=== PATIENT | female | born 1950 | race Caucasian/White ===

== ENCOUNTER 2019-06-24 22:34 | Inpatient (IN) ==
--- NOTE | 2019-06-24 23:07 | Emergency Department Note ---
Weakness HPI - General Chief complaint: Weakness Stated complaint: weakness Time Seen by Provider: 06/24/19 22:42 Source: family, EMS Mode of arrival: EMS Limitations: no limitations - History of Present Illness HPI Narrative: 68-year-old female comes in with a 2-day history of somnolence where her is having trouble awakening her. These episodes are intermittent and CPAP seems to help. She has known severe sleep apnea and has not been wearing her mask. She has been complaining of belly pain as well for the last couple months but this is getting increased severity. Seems to be periumbilical. She is able to urinate. 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 Most of this history is per her as she keeps falling asleep - Related Data Home Medications Medication Instructions Recorded Confirmed Aspirin [Hetal Chewable Aspirin] 81 mg PO DAILY 10/28/15 08/26/18 Atorvastatin [Lipitor] 20 mg PO HS 10/28/15 08/26/18 Carvedilol [Coreg] 12.5 mg PO BIDCC 10/28/15 08/26/18 Fenofibrate Nanocrystallized 145 mg PO DAILY 10/28/15 08/26/18 [Tricor] Furosemide [Lasix] 20 mg PO DAILY 10/28/15 08/26/18 Rizatriptan Benzoate [Maxalt] 10 mg PO DAILY 10/28/15 08/26/18 amLODIPine [Norvasc] 5 mg PO DAILY 10/28/15 08/26/18 Gabapentin [Neurontin] 800 mg PO TID 10/29/15 08/26/18 Methocarbamol [Robaxin] 750 mg PO Q6HP PRN 10/29/15 08/26/18 Niacin (Inositol Niacinate) 500 mg PO HS 10/29/15 08/26/18 [Niacin 500 mg Capsule] Sennosides/Docusate Sodium 2 tab PO DAILY 10/29/15 08/26/18 [Senna-Docusate Sodium Tablet] Docusate Sodium [Colace] 200 mg PO PRN PRN 03/12/17 08/26/18 Ergocalciferol (Vitamin D2) 50,000 unit PO 2-3XW 03/12/17 08/26/18 [Vitamin D2] Losartan Potassium [Cozaar] 100 mg PO DAILY 03/12/17 08/26/18 Triamcinolone Acetonide [Nasacort] 55 mcg INTRANASAL DAILY 03/12/17 08/26/18 Venlafaxine HCl [Venlafaxine HCl 75 mg PO DAILY 03/12/17 03/23/18 ER] Albuterol Sulfate [Ventolin] 2 puff INH Q4-6HP PRN 03/23/18 08/26/18 fentanyl 50 mcg/hr transdermal 1 patch TRANSDERMA Q48H each 07/29/18 08/26/18 patch hydromorphone 4 mg tablet 4 mg PO Q4H PRN 07/29/18 08/26/18 multivitamin tablet 1 tab PO QDAY 07/29/18 08/26/18 fexofenadine 60 mg tablet 60 mg PO BID 08/26/18 08/26/18 hydrochlorothiazide 12.5 mg tablet 12.5 mg PO QDAY 08/26/18 08/26/18 lamotrigine ER 50 mg 50 mg PO QDAY 08/26/18 08/26/18 tablet,extended release 24 hr lorazepam 1 mg tablet 1 mg PO TID PRN tab 08/26/18 08/26/18 prochlorperazine maleate 10 mg 10 mg PO TID PRN tab 08/26/18 08/26/18 tablet sertraline 100 mg tablet 100 mg PO DAILY tab 08/26/18 08/26/18 Allergies Allergy/AdvReac Type Severity Reaction Status Date / Time methadone [Methadone] AdvReac Intermediate Vomiting Verified 08/26/18 14:52 promethazine [From Phenergan] AdvReac Intermediate Vomiting Verified 08/26/18 14:52 ziconotide [From Prialt] AdvReac Unknown Other Verified 08/26/18 14:52 Review of Systems All systems ED: reviewed and negative except as stated. Past Medical History - Past Medical History Attestation: Yes: The following information was validated with the patient. 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) Spinal stenosis (Chronic) Mixed hyperlipidemia (Chronic) Chronic kidney disease, stage III (moderate) (Chronic) Colonic polyp (Chronic) Sleep apnea (Chronic) Spasm of muscle (Chronic) Chronic lumbar radiculopathy (Chronic) Memory difficulty (Chronic) Depressive episode (Chronic) Constipation (Chronic) Difficulty in walking (Chronic) Weakness (Chronic) Numbness (Chronic) CKD (chronic kidney disease) (Chronic) Adenomatous colon polyp (Chronic) CHF (congestive heart failure) (Chronic) Fatty liver (Chronic) Opioid dependence (Chronic) Mitral valve prolapse (Chronic) Hyperlipidemia (Chronic) Depression (Chronic) GLENNA (obstructive sleep apnea) (Chronic) Migraine (Chronic) Anxiety (Chronic) Asthma (Chronic) Leg pain (Chronic) Back pain (Chronic) COPD exacerbation (Acute) Community acquired pneumonia (Acute) Diabetes (Acute) Chronic pain (Acute) Hypertension (Acute) Respiratory infection (Acute) Acute respiratory failure (Acute) Past Surgical History (Last Reviewed 08/26/18 @ 15:23 by Caio Lopes MD) History of appendectomy (Chronic) History of back surgery (Chronic) History of exploratory laparotomy (Chronic) History of surgery (Chronic) S/P ALISIA-BSO (Chronic) S/P insertion of spinal cord stimulator (Chronic) - Social History smoking status: Current every day smoker Physical Exam Overweight female no acute distress resting. She does make myoclonic movements from time to time and she goes in and out of sleep. She is easily arousable for us here but she does appear to be globally weak. Normocephalic atraumatic. Conjunctive are clear sclerae white nonicteric. No nasal discharge or congestion. Oropharynx is pink and moist. Posterior pharynx is clear. Neck is supple without lymphadenopathy thyromegaly or carotid bruit. Heart is regular rate and rhythm no murmur appreciated. Lungs are clear to auscultation but she does have an end expiratory wheeze. No respiratory distress however. I do not hear rales. Abdomen is soft diffusely tender periumbilical and a little bit epigastric as well. No peritoneal signs or guarding. No pedal edema. +2 radial pulse. Limitations: no limitations Course Vital Signs Temperature 98.2 F 06/24/19 22:36 Pulse Rate 73 06/24/19 22:36 Respiratory Rate 18 06/24/19 22:36 Blood Pressure 153/73 06/24/19 22:36 Pulse Oximetry (%) 94 06/24/19 22:36 Temperature 98.2 F 06/24/19 22:36 Pulse Rate 71 06/25/19 01:02 Respiratory Rate 18 06/25/19 00:01 Blood Pressure 175/77 06/25/19 01:02 Pulse Oximetry (%) 91 06/25/19 01:02 Weakness - Lab Data Lab results reviewed: Yes I reviewed the patient's lab results. Result diagrams: 06/24/19 23:10 06/24/19 23:10 Lab Results 06/24/19 06/24/19 06/24/19 Range/Units 23:10 23:10 23:10 WBC 4.8 (4.5-11.0) K/mcL RBC 3.31 L (4.00-5.20) M/mcL Hgb 10.1 L (12.0-15.0) g/dL Hct 30.3 L (36.0-48.0) % POC Hct 29.0 L (36.0-48.0) % MCV 91.3 (80.0-100.0) fL MCH 30.5 (26.0-34.0) pg MCHC 33.4 (31.0-36.0) g/dL RDW 14.9 H (11.5-14.5) % Plt Count 127 L (140-440) K/mcL MPV 8.2 (7.4-10.4) fL Gran % 64.3 (38.0-78.0) % Lymph % (Auto) 26.1 (15.5-49.0) % [place] % (Auto) 8.3 (1.0-12.0) % Eos % (Auto) 1.1 (0.0-7.0) % Baso % (Auto) 0.2 (0.0-2.0) % Gran # 3.1 (1.8-8.0) K/mcL Lymph # (Auto) 1.2 L (1.5-4.8) K/mcL [place] # (Auto) 0.4 (0.1-0.9) K/mcL Eos # (Auto) 0.1 (0.0-0.7) K/mcL Baso # (Auto) 0 (0.0-0.3) K/mcL PT (11.9-14.5) sec INR (0.9-1.1) ABG Methemoglobin (0.4-1.5) % VBG pH (7.32-7.42) U VBG pCO2 (41.0-51.0) mmHg VBG pO2 (25-40) mmHg VBG HCO3 (24.0-28.0) mmol/L VBG Total CO2 (25.0-29.0) mmol/L VBG O2 Saturation (40.0-70.0) % VBG Base Excess (-2.0-2.0) VBG Lactic Acid 0.7 (0.5-2.0) mmol/L Carboxyhemoglobin (0.0-1.5) % THgb Total Hemoglobin (12.0-15.0) gm/dL O2 Delivery Level POC Sodium 145 (133-145) mmol/L Sodium 145 (133-145) mmol/L POC Potassium 3.6 (3.3-5.1) mmol/L Potassium 3.5 (3.3-5.1) mmol/L POC Chloride 102 (96-108) mmol/L Chloride 104 (96-108) mmol/L Carbon Dioxide 32 H (22-30) mmol/L POC Total CO2 31 H (22-30) mmol/L Anion Gap 9.0 (8-16) POC BUN 20 (8-23) mg/dl BUN 19 (8-23) mg/dl Creatinine 1.8 H (0.6-1.1) mg/dl POC Creatinine 1.9 H (0.6-1.1) mg/dl GFR Calculation 29 Glucose 78 (70-105) mg/dL POC Glucose 79 (70-105) mg/dL Calcium 8.7 (8.6-10.4) mg/dl POC WB Ioniz Calcium 1.13 L (1.16-1.32) mmol/L Magnesium 1.7 (1.6-2.5) mg/dL Total Bilirubin 0.4 (0.0-1.0) mg/dL AST 51 H (0-37) U/l ALT 17 (0-40) U/l Alkaline Phosphatase 82 (39-117) U/L Ammonia (11-51) umol/L Troponin T (0-0.03) ng/ml Total Protein 6.0 (5.9-8.4) gm/dL Albumin 3.2 (3.2-5.2) gm/dL Globulin 2.8 (2.2-3.7) gm/dL Albumin/Globulin Ratio 1.1 (1.0-2.3) Lipase 106 H (7-60) U/L 06/24/19 06/24/19 06/24/19 Range/Units 23:10 23:10 23:50 WBC (4.5-11.0) K/mcL RBC (4.00-5.20) M/mcL Hgb (12.0-15.0) g/dL Hct (36.0-48.0) % POC Hct (36.0-48.0) % MCV (80.0-100.0) fL MCH (26.0-34.0) pg MCHC (31.0-36.0) g/dL RDW (11.5-14.5) % Plt Count (140-440) K/mcL MPV (7.4-10.4) fL Gran % (38.0-78.0) % Lymph % (Auto) (15.5-49.0) % [place] % (Auto) (1.0-12.0) % Eos % (Auto) (0.0-7.0) % Baso % (Auto) (0.0-2.0) % Gran # (1.8-8.0) K/mcL Lymph # (Auto) (1.5-4.8) K/mcL [place] # (Auto) (0.1-0.9) K/mcL Eos # (Auto) (0.0-0.7) K/mcL Baso # (Auto) (0.0-0.3) K/mcL PT 13.9 (11.9-14.5) sec INR 1.1 (0.9-1.1) ABG Methemoglobin 0.3 L (0.4-1.5) % VBG pH 7.43 H (7.32-7.42) U VBG pCO2 53.8 H (41.0-51.0) mmHg VBG pO2 91 H (25-40) mmHg VBG HCO3 34.5 H (24.0-28.0) mmol/L VBG Total CO2 36.2 H (25.0-29.0) mmol/L VBG O2 Saturation 94.6 H (40.0-70.0) % VBG Base Excess 8.8 H (-2.0-2.0) VBG Lactic Acid (0.5-2.0) mmol/L Carboxyhemoglobin 2.6 H (0.0-1.5) % THgb Total Hemoglobin 10.0 L (12.0-15.0) gm/dL O2 Delivery Level Not Reportable POC Sodium (133-145) mmol/L Sodium (133-145) mmol/L POC Potassium (3.3-5.1) mmol/L Potassium (3.3-5.1) mmol/L POC Chloride (96-108) mmol/L Chloride (96-108) mmol/L Carbon Dioxide (22-30) mmol/L POC Total CO2 (22-30) mmol/L Anion Gap (8-16) POC BUN (8-23) mg/dl BUN (8-23) mg/dl Creatinine (0.6-1.1) mg/dl POC Creatinine (0.6-1.1) mg/dl GFR Calculation Glucose (70-105) mg/dL POC Glucose (70-105) mg/dL Calcium (8.6-10.4) mg/dl POC WB Ioniz Calcium (1.16-1.32) mmol/L Magnesium (1.6-2.5) mg/dL Total Bilirubin (0.0-1.0) mg/dL AST (0-37) U/l ALT (0-40) U/l Alkaline Phosphatase (39-117) U/L Ammonia (11-51) umol/L Troponin T < 0.01 (0-0.03) ng/ml Total Protein (5.9-8.4) gm/dL Albumin (3.2-5.2) gm/dL Globulin (2.2-3.7) gm/dL Albumin/Globulin Ratio (1.0-2.3) Lipase (7-60) U/L 06/25/19 Range/Units 00:55 WBC (4.5-11.0) K/mcL RBC (4.00-5.20) M/mcL Hgb (12.0-15.0) g/dL Hct (36.0-48.0) % POC Hct (36.0-48.0) % MCV (80.0-100.0) fL MCH (26.0-34.0) pg MCHC (31.0-36.0) g/dL RDW (11.5-14.5) % Plt Count (140-440) K/mcL MPV (7.4-10.4) fL Gran % (38.0-78.0) % Lymph % (Auto) (15.5-49.0) % [place] % (Auto) (1.0-12.0) % Eos % (Auto) (0.0-7.0) % Baso % (Auto) (0.0-2.0) % Gran # (1.8-8.0) K/mcL Lymph # (Auto) (1.5-4.8) K/mcL [place] # (Auto) (0.1-0.9) K/mcL Eos # (Auto) (0.0-0.7) K/mcL Baso # (Auto) (0.0-0.3) K/mcL PT (11.9-14.5) sec INR (0.9-1.1) ABG Methemoglobin (0.4-1.5) % VBG pH (7.32-7.42) U VBG pCO2 (41.0-51.0) mmHg VBG pO2 (25-40) mmHg VBG HCO3 (24.0-28.0) mmol/L VBG Total CO2 (25.0-29.0) mmol/L VBG O2 Saturation (40.0-70.0) % VBG Base Excess (-2.0-2.0) VBG Lactic Acid (0.5-2.0) mmol/L Carboxyhemoglobin (0.0-1.5) % THgb Total Hemoglobin (12.0-15.0) gm/dL O2 Delivery Level POC Sodium (133-145) mmol/L Sodium (133-145) mmol/L POC Potassium (3.3-5.1) mmol/L Potassium (3.3-5.1) mmol/L POC Chloride (96-108) mmol/L Chloride (96-108) mmol/L Carbon Dioxide (22-30) mmol/L POC Total CO2 (22-30) mmol/L Anion Gap (8-16) POC BUN (8-23) mg/dl BUN (8-23) mg/dl Creatinine (0.6-1.1) mg/dl POC Creatinine (0.6-1.1) mg/dl GFR Calculation Glucose (70-105) mg/dL POC Glucose (70-105) mg/dL Calcium (8.6-10.4) mg/dl POC WB Ioniz Calcium (1.16-1.32) mmol/L Magnesium (1.6-2.5) mg/dL Total Bilirubin (0.0-1.0) mg/dL AST (0-37) U/l ALT (0-40) U/l Alkaline Phosphatase (39-117) U/L Ammonia 41 (11-51) umol/L Troponin T (0-0.03) ng/ml Total Protein (5.9-8.4) gm/dL Albumin (3.2-5.2) gm/dL Globulin (2.2-3.7) gm/dL Albumin/Globulin Ratio (1.0-2.3) Lipase (7-60) U/L Urinalysis [id number] dipstick showed trace leukocytes trace blood specific gravity 1.010 otherwise normal - Radiology Data Radiology results reviewed: Yes I reviewed the patient's radiology results. CT of the head shows mild sphenoid sinusitis CT scan of the abdomen and pelvis without contrast shows cirrhosis of the liver with mild ascites splenomegaly but no other acute findings - EKG Data EKG attestation: Yes I reviewed and interpreted this EKG., Yes There are no EKG findings of acute coronary syndrome, Yes This EKG will be read by crop nutrition scientist EKG results narrative: Normal sinus rhythm with a rate of 72. Disposition Pt seen by SENIOR NET APPLICATION DEVELOPER/PA only: No Clinical Impression: Sphenoid sinusitis Qualifiers: Chronicity: acute Recurrence: not specified as recurrent Qualified Code(s): J01.30 - Acute sphenoidal sinusitis, unspecified Cirrhosis Qualifiers: Hepatic cirrhosis type: unspecified hepatic cirrhosis Ascites presence: with ascites Qualified Code(s): K74.60 - Unspecified cirrhosis of liver Altered mental status Qualifiers: Altered mental status type: somnolence Qualified Code(s): R40.0 - Somnolence Acute renal failure Qualifiers: Acute renal failure type: unspecified Qualified Code(s): N17.9 - Acute kidney failure, unspecified UTI (urinary tract infection) Qualifiers: Urinary tract infection type: acute cystitis Hematuria presence: with hematuria Qualified Code(s): N30.01 - Acute cystitis with hematuria Summary: Work-up ordered with CT scans, laboratory, ABG. EKG is unrevealing as is urinalysis dipstick. Suspect elevated CO2 is causing her symptomatology in terms of jerking and somnolence. Unclear what is causing her belly pain over the last couple of months. Urinalysis shows trace leukocytes and blood which could be a UTI. CT scan of the head shows sphenoidal sinusitis. Rx for IV ceftriaxone as she is somnolent and this will cover both. CT scan of the abdomen pelvis shows evidence of cirrhosis with mild ascites. Check ammonia level as this may account for her somnolence Ammonia level was normal She remains somnolent but oxygen levels were okay. Her creatinine is elevated now at 1.8 up from 1.3 or 1.4 at baseline based on previous labs. I think she needs to come in the hospital for acute renal failure with altered mental status. I discussed the case with Dr. Ojeda, hospitalist, he agreed to accept the patient for further care and evaluation in the hospital. We will continue antibiotics and IV fluids overnight Disposition: Xfer As Outpt/Obs ([facility]) Condition: Fair Referrals: Delicia Jones MD [Primary Care Provider] -
[2019-06-24] MEDS ORDERED: IPRATROPIUM/ALBUTEROL 3 ML AMPUL.NEB NEB ONE (23:09)
[2019-06-24 23:22] LABS: POC Blood Urea Nitrogen 20 mg/dl (8-23); POC CO2 31 mmol/L (22-30); POC Calcium, Ionized 1.13 mmol/L (1.16-1.32); POC Chloride 102 mmol/L (96-108); POC Creatinine 1.9 mg/dl (0.6-1.1); POC Glucose, Random 79 mg/dL (70-105); POC Potassium 3.6 mmol/L (3.3-5.1); POC Sodium 145 mmol/L (133-145)
[2019-06-24] MEDS ORDERED: 0.9 % SODIUM CHLORIDE 1,000 ML IV ONE (23:40)
[2019-06-25 00:04] LABS: Basophils # (Auto) 0 K/mcL (0.0-0.3); Basophils % (Auto) 0.2 % (0.0-2.0); Eosinophils # (Auto) 0.1 K/mcL (0.0-0.7); Eosinophils % (Auto) 1.1 % (0.0-7.0); Granulocytes % (Auto) 64.3 % (38.0-78.0); Hematocrit 30.3 % (36.0-48.0); Hemoglobin 10.1 g/dL (12.0-15.0); Lymphocytes # (Auto) 1.2 K/mcL (1.5-4.8); Lymphocytes % (Auto) 26.1 % (15.5-49.0); Mean Cell Volume 91.3 fL (80.0-100.0); Mean Corpuscular HGB Conc 33.4 g/dL (31.0-36.0); Mean Platelet Volume 8.2 fL (7.4-10.4); Monocytes # (Auto) 0.4 K/mcL (0.1-0.9); Monocytes % (Auto) 8.3 % (1.0-12.0); Platelet Count 127 K/mcL (140-440); RBC 3.31 M/mcL (4.00-5.20); Red Cell Distribution Width 14.9 % (11.5-14.5); WBC 4.8 K/mcL (4.5-11.0)
[2019-06-25 00:16] LABS: INR 1.1 (0.9-1.1); Prothrombin Time 13.9 sec (11.9-14.5)
[2019-06-25 00:31] LABS: ALT/SGPT 17 U/l (0-40); AST/SGOT 51 U/l (0-37); Albumin 3.2 gm/dL (3.2-5.2); Albumin/Globulin Ratio 1.1 (1.0-2.3); Alkaline Phosphatase 82 U/L (39-117); Bilirubin,Total 0.4 mg/dL (0.0-1.0); Blood Urea Nitrogen 19 mg/dl (8-23); Calcium 8.7 mg/dl (8.6-10.4); Carbon Dioxide 32 mmol/L (22-30); Chloride 104 mmol/L (96-108); Globulin 2.8 gm/dL (2.2-3.7); Glomerular Filtration Rate 29; Glucose 78 mg/dL (70-105)
[2019-06-25 00:35] LABS: ABG Methemoglobin 0.3 % (0.4-1.5); VBG Base Excess 8.8 (-2.0-2.0); VBG HCO3 34.5 mmol/L (24.0-28.0); VBG Oxygen Saturation 94.6 % (40.0-70.0); VBG PCO2 53.8 mmHg (41.0-51.0); VBG PH 7.43 U (7.32-7.42); VBG PO2 91 mmHg (25-40); VBG Total CO2 36.2 mmol/L (25.0-29.0)
[2019-06-25] MEDS ORDERED: cefTRIAXone 1 GM VIAL IV ONE (01:00)
[2019-06-25] MEDS ORDERED: ACETAMINOPHEN 325 MG TABLET PO PRN (02:02)
[2019-06-25] MEDS ORDERED: ONDANSETRON 4 MG/2 ML VIAL IV PRN (02:02)
[2019-06-25] MEDS ORDERED: 0.9 % SODIUM CHLORIDE 1,000 ML IV SCH (02:15)
[2019-06-25] MEDS: HYDROmorphone 2 MG TABLET PO PRN ×5 (03:22→21:12)
[2019-06-25] MEDS ORDERED: HYDROmorphone 2 MG TABLET ONE (03:23)
[2019-06-25] MEDS ORDERED: fentaNYL 50 MCG PATCH TOPICAL SCH (03:30)
--- NOTE | 2019-06-25 05:06 | Cat Scan Report ---
CLINICAL INFORMATION: Altered mental status COMPARISON: 03/28/[address] without contrast TECHNIQUE: 2.5 mm helical slices were obtained in the skull base to vertex. Following reconstruction, axial reformatted images were reviewed at bone and parenchymal windows. The exam was performed using radiation dose optimization techniques including, but not limited to, automated exposure control, adjustment of the mA and/or kV according to patient size and use of iterative reconstruction technique. FINDINGS: The ventricles, sulci, fissures, and cisterns are normal in size and configuration for age. No extra-axial fluid collections are identified. Minimal chronic ischemic changes noted in the cerebral white matter and basal ganglia similar previous study. The cerebrum, brainstem and cerebellum are otherwise, unremarkable. There is no evidence of hemorrhage, mass effect, or edema. Bone windows show no osseous abnormality. IMPRESSION: Mild atrophy and minimal chronic ischemic changes in the deep cerebral white matter - similar to previous study.. Interpreted and Authenticated by: Nacho Vaz 06/25/19
--- NOTE | 2019-06-25 05:22 | Cat Scan Report ---
CLINICAL INFORMATION: Abdominal pain and weakness. History of chronic renal disease COMPARISON: Abdominal ultrasound 10/11/2006. TECHNIQUE: 0.625 mm helical slices were obtained from the mid heart through the subtrochanteric regions. Following reconstruction, 2.5 mm sagittal, coronal and axial reformatted images were processed and reviewed at bone and soft tissue windows.The exam was performed using radiation dose optimization techniques including, but not limited to, automated exposure control, adjustment of the mA and/or kV according to patient size and use of iterative reconstruction technique. FINDINGS: Lung bases show scattered scarring or atelectasis. No effusion. The visualized heart is mildly enlarged. Images through the abdomen show moderate cirrhosis featuring slight reduction liver size, irregular cortical surface and inhomogeneous attenuation. No focal hepatic lesions appreciated on this noncontrast study. The portal vein is enlarged with a diameter of 19 mm. there are multiple varices in the paraesophageal, perisplenic, perigastric and peripancreatic region. In addition, the spleen is enlarged with a vertical dimension of 16 cm. No ascites. The gallbladder and bile ducts are normal: CBD is 5 mm. Mild pancreatic atrophy appreciated - no focal pancreatic lesions. The adrenal glands are unremarkable. There are scattered low-attenuation lesions in the right kidney: 19 mm superior pole, 24 mm lateral mid cortex 14 mm inferior pole. In the left kidney, there is a 14 mm low-attenuation lesion in the superior pole. Nearly all lesions were seen on the lumbar CT from 05/05/2017 two years prior and appear to be unchanged. One exception: The 19 mm low-attenuation lesion in the superior pole the right kidney appears to be new. Pelvic images show hysterectomy/oophorectomy changes. Urinary bladder is unremarkable. A few sigmoid diverticula noted, but no evidence of diverticulitis. The remaining large bowel is normal. Appendectomy changes acknowledged. Small bowel and stomach are grossly normal. Bone windows show L4-5 and L5-S1 anterior/posterior fusion laminectomy which are solid and anatomically aligned. No focal osseous lesion. Spinal stimulator wires and battery pack appear unremarkable. IMPRESSION: 1. Moderate cirrhosis with evidence for portal hypertension featuring enlargement of the portal vein and varices in the paraesophageal perigastric and perisplenic region. Moderate splenomegaly. No ascites. 2. Scattered low-attenuation lesions in the kidneys - predominantly on the right,. Nearly all lesions appear to be unchanged since a lumbar spine CT over two years prior. The exception is a 19 mm low-attenuation lesion superior pole the right kidney which may be new. All lesions, including the new lesion, are likely cysts. Suggest: Renal ultrasound. 3. Sigmoid diverticulosis, but no evidence of diverticulitis. 4. Mild pancreatic atrophy Interpreted and Authenticated by: Nacho Vaz 06/25/19
[2019-06-25] MEDS ORDERED: METHOCARBAMOL 750 MG TABLET PO PRN (08:19)
[2019-06-25] MEDS ORDERED: ALBUTEROL SULFATE 1 PUFF INHALER INH PRN (08:19)
[2019-06-25] MEDS ORDERED: PROCHLORPERAZINE 10 MG TABLET PO PRN (08:19)
--- NOTE | 2019-06-25 08:25 | Internal Med History&Physical ---
Medical - H&P: [facility] Patient information: Note initiated : 06/25/19 at 8:16 am Service Date, if different from initiated Date: [] Patient: Kathleen Avitia a 68 y/o F admitted on 06/25/19 for weakness. Chief Complaint: [] Chief complaint: Lethargic and somnolent History of present illness: Ms. 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 Her found her laying like a heap unable to respond. Patient cannot recollect the events prior to presentation to the ER. She has been sleeping all day unable not able to get up and perform ADL. She however did not experience fever, shaking chills, diarrhea, cough, incontinence or seizure-like episodes. With increasing concern she was brought into the ER by her . Initial work-up revealed creatinine 1.9 along with mild hypoxia on ABG. Patient started on oxygen/crystalloids. She is on multiple pain medication including fentanyl\Dilaudid/lorazepam/methocarbamol/gabapentin. Remains high probability polypharmacy related somnolence. Hospitalist service was consulted At the time of evaluation no family members are present. Patient is more alert and able to answer some of the questions. She denies chest pain, lightheadedness, dizziness but endorses a severe fatigue lethargic. Unable to recollect any events over the last 24 hours. She denies changes in medications or recent exposure to sick contacts. 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 Spasm of muscle (Chronic) History of recurrent severe spastic episodes Chronic lumbar radiculopathy (Chronic) Memory difficulty (Chronic) Depressive episode (Chronic) Constipation (Chronic) Difficulty in walking (Chronic) Weakness (Chronic) Numbness (Chronic) CKD (chronic kidney disease) (Chronic) Adenomatous colon polyp (Chronic) CHF (congestive heart failure) (Chronic) Fatty liver (Chronic) Opioid dependence (Chronic) for pain control of benign origin Mitral valve prolapse (Chronic) Hyperlipidemia (Chronic) Depression (Chronic) GLENNA (obstructive sleep apnea) (Chronic) Migraine (Chronic) Anxiety (Chronic) Asthma (Chronic) Leg pain (Chronic) Back pain (Chronic) COPD exacerbation (Acute) Community acquired pneumonia (Acute) sereneitmaria luz Abbott, failed outpatient therapy Diabetes (Acute) Chronic pain (Acute) Hypertension (Acute) Respiratory infection (Acute) Acute respiratory failure (Acute) Surgical History History of appendectomy (Chronic) History of back surgery (Chronic) 10 different encounters; multiple lumbar decompressive surgeries History of exploratory laparotomy (Chronic) History of surgery (Chronic) 2006 pain pump, nerve stimulator S/P ALISIA-BSO (Chronic) S/P insertion of spinal cord stimulator (Chronic) Family History Brother , 36 Cancer Social History marital status: other: Children-1 smoking status: Current every day smoker alcohol intake frequency: a few times a week Alcohol use: occasionally Medical - H&P: Meds Home Medications Medication Instructions Recorded Confirmed Type Aspirin [Hetal Chewable Aspirin] 81 mg PO DAILY 10/28/15 06/25/19 History Atorvastatin [Lipitor] 20 mg PO HS 10/28/15 06/25/19 History Carvedilol [Coreg] 12.5 mg PO BIDCC 10/28/15 06/25/19 History Fenofibrate Nanocrystallized 145 mg PO DAILY 10/28/15 06/25/19 History [Tricor] Furosemide [Lasix] 20 mg PO DAILY 10/28/15 06/25/19 History Rizatriptan Benzoate [Maxalt] 10 mg PO DAILY 10/28/15 06/25/19 History amLODIPine [Norvasc] 10 mg PO DAILY 10/28/15 06/25/19 History Gabapentin [Neurontin] 800 mg PO TID 10/29/15 06/25/19 History Methocarbamol [Robaxin] 750 mg PO Q6HP PRN 10/29/15 06/25/19 History Niacin (Inositol Niacinate) 500 mg PO HS 10/29/15 06/25/19 History [Niacin 500 mg Capsule] Sennosides/Docusate Sodium 3 tab PO DAILY 10/29/15 06/25/19 History [Senna-Docusate Sodium Tablet] Docusate Sodium [Colace] 200 mg PO QDAY 03/12/17 06/25/19 History Ergocalciferol (Vitamin D2) 50,000 unit PO WEEKLY 03/12/17 06/25/19 History [Vitamin D2] Triamcinolone Acetonide [Nasacort] 2 spray INTRANASAL DAILY 03/12/17 06/25/19 History Albuterol Sulfate [Ventolin] 2 puff INH Q4-6HP PRN 03/23/18 06/25/19 History fentanyl 50 mcg/hr transdermal 1 patch TRANSDERMA Q48H each 07/29/18 06/25/19 History patch hydromorphone 4 mg tablet 4 mg PO Q4H PRN 07/29/18 06/25/19 History fexofenadine 60 mg tablet 60 mg PO BID 08/26/18 06/25/19 History hydrochlorothiazide 12.5 mg tablet 12.5 mg PO QDAY 08/26/18 06/25/19 History lorazepam 1 mg tablet 2 mg PO BID PRN tab 08/26/18 06/25/19 History prochlorperazine maleate 10 mg 10 mg PO Q4HP PRN tab 08/26/18 06/25/19 History tablet sertraline 100 mg tablet 100 mg PO DAILY tab 08/26/18 06/25/19 History Cozaar 100 mg PO QDAY 06/25/19 06/25/19 History Proventil Hfa 2 puff INH Q6 06/25/19 06/25/19 History Allergies Allergy/AdvReac Type Severity Reaction Status Date / Time methadone [Methadone] AdvReac Intermediate Vomiting Verified 06/25/19 03:11 promethazine [From Phenergan] AdvReac Mild Vomiting Verified 06/25/19 05:45 ziconotide [From Prialt] AdvReac Mild Other Verified 06/25/19 05:45 Medical - H&P: Exam - Constitutional Vitals: Temp Pulse Resp BP Pulse Ox 98.6 F 74 16 182/81 93 06/25/19 07:49 06/25/19 07:49 06/25/19 07:49 06/25/19 07:49 06/25/19 07:49 General appearance: obese Exam: Lethargic and somnolent but responding to commands Head normocephalic oral cavity dry eye movement symmetrical no ear nose discharge S1-S2 regular rhythm Neck no lymphadenopathy Chest diminished breath sounds right posterior lateral chest, inspiratory crackles on late inspiration Abdomen soft nontender Lower extremity no cyanosis clubbing no joint swelling Skin no suspicious lesion Psych lethargic somnolent but cooperative Neuro nonfocal Medical - H&P: Reslt - Labs CBC & Chem 7: 06/24/19 23:10 06/24/19 23:10 Labs: Short CBC 06/24/19 Range/Units 23:10 WBC 4.8 (4.5-11.0) K/mcL Hgb 10.1 L (12.0-15.0) g/dL Hct 30.3 L (36.0-48.0) % Plt Count 127 L (140-440) K/mcL BMP 06/24/19 23:10 Sodium 145 Potassium 3.5 Chloride 104 Carbon Dioxide 32 H BUN 19 Creatinine 1.8 H Glucose 78 Calcium 8.7 Cardiac Enzymes 06/24/19 Range/Units 23:10 Troponin T < 0.01 (0-0.03) ng/ml Liver Function 06/24/19 Range/Units 23:10 Total Bilirubin 0.4 (0.0-1.0) mg/dL AST 51 H (0-37) U/l ALT 17 (0-40) U/l Alkaline Phosphatase 82 (39-117) U/L Albumin 3.2 (3.2-5.2) gm/dL - ABG Interpretation ABG results: 06/24/19 23:50 ABG Methemoglobin 0.3 L VBG pH 7.43 H VBG pCO2 53.8 H VBG pO2 91 H VBG HCO3 34.5 H VBG Total CO2 36.2 H VBG O2 Saturation 94.6 H VBG Base Excess 8.8 H Medical - H&P: A/P (1) Change in mental status Current visit: Yes Status: Acute * Acute change mental status-likely multifactorial including polypharmacy/hypercapnic hypoxic encephalopathy. Rule out infectious etiology. check procalcitonin. Chest x-ray right-sided infiltrate. * Acute kidney injury baseline creatinine 1.1 current creatinine 1.8. Gentle crystalloids. Monitor renal function * Sleep apnea with hypercarbic hypoventilatory respiratory failure, check ABG. Start BiPAP if evidence of CO2 retention repeat ABG * Abdominal pain unclear etiology. Negative CT scan. * Continue Coreg/CC B/thiazide, hold ARB in light of NAPOLEON * Anxiety disorder continue sertraline * Chronic pain on hydromorphone/fentanyl/gabapentin methocarbamol, lower fentanyl dose 25 * History of migraine on rizatriptan * Hyperlipidemia on statin * History of CAD on aspirin statin beta-aileen/ARB * Full code * prophylaxis heparin Plan * Observation admit in light of acute kidney injury/mental status change * BiPAP if evidence of hypercapnic respiratory failure * Hold Dilaudid and lower fentanyl dose * Pancultures, chest imaging/procalcitonin * Repeat ABG * Pre-existing medical condition management as above * PT OT nutrition support Medical - H&P: Qual - Stroke Symptom Onset Unknown: No - VTE Deep Vein Thrombosis/Pulmonary Embolism Present on Admission: No
--- NOTE | 2019-06-25 08:40 | XRay Report ---
CLINICAL INFORMATION: sob COMPARISON: 11/12/2015 FINDINGS: Right-sided Port-A-Cath is stable satisfactory position. The heart is mildly enlarged - slightly increased. Mediastinum is unremarkable. Mild interstitial disease seen throughout the right lung which is new. No effusions. IMPRESSION: Moderate diffuse right lung interstitial infiltrate or edema - new. Suggest two-view upright chest x-ray for better evaluation Interpreted and Authenticated by: Nacho Vaz 06/25/19
[2019-06-25] MEDS: HYDROCHLOROTHIAZIDE 12.5 MG CAPSULE PO SCH (08:50)
[2019-06-25] MEDS: ASPIRIN 81 MG TAB.CHEW PO SCH (08:50)
[2019-06-25] MEDS: DOCUSATE SODIUM 100 MG CAPSULE PO SCH (08:50)
[2019-06-25] MEDS: ERGOCALCIFEROL (VITAMIN D2) 50,000 UNIT CAPSULE PO SCH (08:50)
[2019-06-25] MEDS: SERTRALINE 100 MG TABLET PO SCH (08:51)
[2019-06-25] MEDS: SENNOSIDES/DOCUSATE SODIUM 1 TAB TABLET PO SCH (08:51)
[2019-06-25] MEDS: amLODIPine 10 MG TABLET PO SCH (08:51)
[2019-06-25] MEDS: FENOFIBRATE 43 MG CAPSULE PO SCH (08:51)
[2019-06-25] MEDS ORDERED: FUROSEMIDE 20 MG TABLET PO SCH (09:00)
[2019-06-25] MEDS ORDERED: RIZATRIPTAN BENZOATE 10 MG PO PRN (09:00)
[2019-06-25] MEDS: TRIAMCINOLONE ACETONIDE NAS SCH (09:51)
[2019-06-25] MEDS: [UNRECOGNIZED DRUG - REMARK] PO SCH ×2 (09:51→20:19)
[2019-06-25 10:10] LABS: Basophils # (Auto) 0 K/mcL (0.0-0.3); Basophils % (Auto) 0.2 % (0.0-2.0); Eosinophils # (Auto) 0.1 K/mcL (0.0-0.7); Eosinophils % (Auto) 1.8 % (0.0-7.0); Granulocytes % (Auto) 67.5 % (38.0-78.0); Hematocrit 33.4 % (36.0-48.0); Lymphocytes # (Auto) 1.2 K/mcL (1.5-4.8); Lymphocytes % (Auto) 24.2 % (15.5-49.0); Mean Cell Volume 90.8 fL (80.0-100.0); Mean Corpuscular HGB Conc 32.9 g/dL (31.0-36.0); Monocytes # (Auto) 0.3 K/mcL (0.1-0.9); Monocytes % (Auto) 6.3 % (1.0-12.0); Platelet Count 136 K/mcL (140-440); RBC 3.68 M/mcL (4.00-5.20); WBC 4.8 K/mcL (4.5-11.0)
[2019-06-25] MEDS: fentaNYL 25 MCG PATCH TOPICAL SCH (10:31)
[2019-06-25] MEDS: 0.9 % SODIUM CHLORIDE 1,000 ML IV SCH ×2 (10:32→23:17)
[2019-06-25 10:52] LABS: Appearance,Urine CLEAR; Bacteria,Urine 0 /hpf (0); Bilirubin,Urine NEG (NEG); Color,Urine STRAW; Culture Indicated,Urine NO; Glucose,Urine (UA) NEGATIVE (NEG); Ketones,Urine NEG (NEG); Leukocyte Esterase,Urine NEG /uL (NEG); Nitrate,Urine NEG (NEG); Protein,Urine 100 mg/dL (NEG); Specific Gravity,Urine 1.011 (1.000-1.035); Urine Blood NEG mg/dL (<0.03); Urine RBC < 1 /hpf (0-1); Urine Squamous Epithelial Cell < 1 /hpf (0-4); Urine WBC 1 /hpf (0-4); Urobilinogen,Urine NEG (NEG)
[2019-06-25] MEDS ORDERED: PROVENTIL INH SCH (12:00)
[2019-06-25] MEDS: CARVEDILOL 12.5 MG TABLET PO SCH ×2 (13:03→20:18)
--- NOTE | 2019-06-25 13:18 | Internal Med Progress Note ---
Medical - PN: Subj Patient information: Note initiated : 06/25/19 at 1:05 pm Service Date, if different from initiated Date: [] Patient: Kathleen Avitia a 68 y/o F admitted on 06/25/19 for weakness. Chief Complaint: [] Interval history: Ms. 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 Her found her laying like a heap unable to respond. Patient cannot recollect the events prior to presentation to the ER. She has been sleeping all day unable not able to get up and perform ADL. She however did not experience fever, shaking chills, diarrhea, cough, incontinence or seizure-like episodes. With increasing concern she was brought into the ER by her . Initial work-up revealed creatinine 1.9 along with mild hypoxia on ABG. Patient started on oxygen/crystalloids. She is on multiple pain medication including fentanyl\Dilaudid/lorazepam/methocarbamol/gabapentin. Remains high probability polypharmacy related somnolence. Hospitalist service was consulted At the time of evaluation no family members are present. Patient is more alert and able to answer some of the questions. She denies chest pain, lightheadedness, dizziness but endorses a severe fatigue lethargic. Unable to recollect any events over the last 24 hours. She denies changes in medications or recent exposure to sick contacts. 06/26 - Constitutional Vitals: Vital Signs Temp Pulse Resp BP Pulse Ox 98.6 F 74 16 180/80 93 06/25/19 07:49 06/25/19 07:49 06/25/19 07:49 06/25/19 12:08 06/25/19 07:49 Period Temp Pulse Resp BP Sys/Connolly Pulse Ox Last 24 Hr 98.1 F-98.6 F 68-76 15-22 151-182/67-81 91-100 Intake and Output 06/24/19 06/25/19 06/25/19 21:59 05:59 13:59 Intake Total 1000 Output Total 350 1000 Balance -350 0 Weight 95.98 kg Intake & Output: Intake & Output 06/24/19 06/25/19 06/25/19 21:59 05:59 13:59 Intake Total 1000 Output Total 350 1000 Balance -350 0 Weight 95.98 kg Intake: IV 1000 Output: Void Amount 350 1000 Other: Meal Breakfast Percent of Meal Consumed 0% Urine Appearance Clear Urine Color Bright Yellow Light Corrina Urine Odor Normal Stool Size Moderate Small Stool Color Brown Brown Stool Consistency Soft Soft Formed # Voids 1 # Bowel Movements 1 Exam: General: Alert, Awake, No acute Distress Eyes/N/T: EOMI, Head/Neck: neck supple, CV: RRR, No murmurs, Pulm: Abd: soft, nontender, +BS x4 Ext: no clubbing/cyanosis/ Neuro: Alert, no focal deficits, moves all extremities, Skin: warm/dry Medical - PN: Obj Da - Labs CBC & Chem 7: 06/25/19 09:05 06/24/19 23:10 Labs: Abnormal Lab Results 06/25/19 06/25/19 06/24/19 09:48 09:05 23:50 RBC 3.68 L Hgb 11.0 L Hct 33.4 L POC Hct RDW 15.0 H Plt Count 136 L Lymph # (Auto) 1.2 L ABG Methemoglobin 0.3 L VBG pH 7.43 H VBG pCO2 53.8 H VBG pO2 91 H VBG HCO3 34.5 H VBG Total CO2 36.2 H VBG O2 Saturation 94.6 H VBG Base Excess 8.8 H Carboxyhemoglobin 2.6 H Total Hemoglobin 10.0 L Carbon Dioxide POC Total CO2 Creatinine POC Creatinine POC WB Ioniz Calcium AST Lipase Urine Protein 100 A 06/24/19 06/24/19 23:10 23:10 RBC 3.31 L Hgb 10.1 L Hct 30.3 L POC Hct 29.0 L RDW 14.9 H Plt Count 127 L Lymph # (Auto) 1.2 L ABG Methemoglobin VBG pH VBG pCO2 VBG pO2 VBG HCO3 VBG Total CO2 VBG O2 Saturation VBG Base Excess Carboxyhemoglobin Total Hemoglobin Carbon Dioxide 32 H POC Total CO2 31 H Creatinine 1.8 H POC Creatinine 1.9 H POC WB Ioniz Calcium 1.13 L AST 51 H Lipase 106 H Urine Protein Meds: Medications Acetaminophen (Tylenol) 650 mg PO Q6HP PRN PRN Reason: PAIN/FEVER > 101 Albuterol Sulfate (Ventolin) 2 puff INH Q4-6HP PRN PRN Reason: Shortness Of Breath Amlodipine Besylate (Norvasc) 10 mg PO DAILY [facility] Last Admin: 06/25/19 08:51 Dose: 10 mg Documented by: Aspirin (Aspirin) 81 mg PO DAILY [facility] Last Admin: 06/25/19 08:50 Dose: 81 mg Documented by: Atorvastatin Calcium (Lipitor) 20 mg PO HS [facility] Carvedilol (Coreg) 12.5 mg PO BIDCC [facility] Last Admin: 06/25/19 13:03 Dose: 12.5 mg Documented by: Docusate Sodium (Colace) 200 mg PO QDAY [facility] Last Admin: 06/25/19 08:50 Dose: 200 mg Documented by: Ergocalciferol (Drisdol) 50,000 unit PO MoFr@0900 [facility] Last Admin: 06/25/19 08:50 Dose: 50,000 unit Documented by: Fenofibrate (Antara) 129 mg PO DAILY [facility] Last Admin: 06/25/19 08:51 Dose: 129 mg Documented by: Fentanyl (Duragesic) 25 mcg TOPICAL Q72H [facility] Last Admin: 06/25/19 10:31 Dose: 25 mcg Documented by: Furosemide (Lasix) 20 mg PO DAILY [facility] Last Admin: 06/25/19 08:51 Dose: 20 mg Documented by: Hydralazine HCl (Apresoline) 10 - 20 mg IV Q2HP PRN PRN Reason: Hypertension Hydrochlorothiazide (Oretic) 12.5 mg PO DAILY [facility] Last Admin: 06/25/19 08:50 Dose: 12.5 mg Documented by: Hydromorphone HCl (Dilaudid) 4 mg PO Q4HP PRN PRN Reason: PAIN LEVEL 3-6 Last Admin: 06/25/19 13:03 Dose: 4 mg Documented by: Sodium Chloride (Sodium Chloride 0.9%) 1,000 mls @ 75 mls/hr IV .[id number] [facility] Last Admin: 06/25/19 10:32 Dose: 75 mls/hr Documented by: Lorazepam (Ativan) 2 mg PO BIDP PRN PRN Reason: Anxiety Methocarbamol (Robaxin) 750 mg PO Q6HP PRN PRN Reason: Pain Ondansetron HCl (Zofran) 4 mg IV Q4HP PRN PRN Reason: Nausea And Vomiting Fexofenadine Hcl [ Allergy Relief] 60 Mg Tab 1 dose PO BID [facility] Last Admin: 06/25/19 09:51 Dose: Not Given Documented by: Rizatriptan Benzoate ([Maxalt] 10 Mg Tab) 1 dose PO DAILYP PRN PRN Reason: Migraine Headache Triamcinolone Acetonide [Nasacort] Nasal Hector 2 dose ADILENE DAILY [facility] Last Admin: 06/25/19 09:51 Dose: Not Given Documented by: Prochlorperazine (Compazine) 10 mg PO Q4HP PRN PRN Reason: Nausea Senna/Docusate Sodium (Senna Plus Tablet) 3 tab PO DAILY [facility] Last Admin: 06/25/19 08:51 Dose: 3 tab Documented by: Sertraline HCl (Zoloft) 100 mg PO DAILY [facility] Last Admin: 06/25/19 08:51 Dose: 100 mg Documented by: - ABG Interpretation ABG results: 06/24/19 23:50 ABG Methemoglobin 0.3 L VBG pH 7.43 H VBG pCO2 53.8 H VBG pO2 91 H VBG HCO3 34.5 H VBG Total CO2 36.2 H VBG O2 Saturation 94.6 H VBG Base Excess 8.8 H Medical - PN: A/P - Time Spent With Patient Total time spent is greater than 50% in coordination of care (as documented) at patient's floor/unit and/or counseling patient: - Narrative A/P Narrative: A: *Encephalopathy: likely multifactorial including polypharmacy(fentanyl, gabapentin, dilaudid, ativan, robaxin)/hypercapnic hypoxic encephalopathy. - *Aspiration pneumonitis/?PNA: -CXR with right side infiltrate *NAPOLEON on CKD III (baseline cr ~1.1): *GLENNA with hypercapnic/hypoxic resp failure noted on VBG in ED and subsequent ABG with low O2: *Abdominal pain unclear etiology. Negative CT scan. *HTN: Coreg/CCB/thiazide/ARB *Anxiety disorder: continue sertraline *Chronic pain: on hydromorphone/fentanyl/gabapentin methocarbamol, lower fentanyl dose 25 *h/o migraine: on rizatriptan *h/o CAD: on ASA/Statin/BB/ARB Plan: -gentle IVF's -BiPAP if evidence of hypercapnic respiratory failure -Hold Dilaudid and lower fentanyl dose, decrease sedating meds upon d/c -Pancultures -hold ARB for NAPOLEON -PT OT nutrition support -ppx: heparin full code Medical - PN: Qual - Stroke Symptom Onset Unknown: No - VTE Deep Vein Thrombosis/Pulmonary Embolism Present on Admission: No
[2019-06-25] MEDS: hydrALAZINE 20 MG/ML VIAL IV PRN (15:51)
[2019-06-25] MEDS: LORazepam 1 MG TABLET PO PRN (17:39)
[2019-06-25] MEDS: ATORVASTATIN 20 MG TABLET PO SCH (20:18)
[2019-06-26] MEDS: HYDROmorphone 2 MG TABLET PO PRN ×4 (02:47→19:19)
[2019-06-26] MEDS: hydrALAZINE 20 MG/ML VIAL IV PRN ×2 (05:44→21:00)
[2019-06-26 06:38] LABS: Basophils # (Auto) 0 K/mcL (0.0-0.3); Basophils % (Auto) 0.2 % (0.0-2.0); Eosinophils # (Auto) 0.1 K/mcL (0.0-0.7); Eosinophils % (Auto) 3.7 % (0.0-7.0); Granulocytes % (Auto) 56.6 % (38.0-78.0); Hematocrit 30.8 % (36.0-48.0); Hemoglobin 10.2 g/dL (12.0-15.0); Lymphocytes # (Auto) 1.3 K/mcL (1.5-4.8); Lymphocytes % (Auto) 32.6 % (15.5-49.0); Mean Cell Volume 91.7 fL (80.0-100.0); Mean Corpuscular HGB Conc 33.1 g/dL (31.0-36.0); Mean Platelet Volume 7.9 fL (7.4-10.4); Monocytes # (Auto) 0.3 K/mcL (0.1-0.9); Monocytes % (Auto) 6.9 % (1.0-12.0); Platelet Count 122 K/mcL (140-440); RBC 3.36 M/mcL (4.00-5.20); Red Cell Distribution Width 15.7 % (11.5-14.5)
[2019-06-26 06:57] LABS: ALT/SGPT 14 U/l (0-40); AST/SGOT 44 U/l (0-37); Albumin/Globulin Ratio 1.1 (1.0-2.3); Alkaline Phosphatase 77 U/L (39-117); Bilirubin,Direct < 0.2 mg/dL (0.0-0.3); Bilirubin,Total 0.5 mg/dL (0.0-1.0); Blood Urea Nitrogen 19 mg/dl (8-23); Calcium 8.6 mg/dl (8.6-10.4); Carbon Dioxide 32 mmol/L (22-30); Chloride 102 mmol/L (96-108); Globulin 2.8 gm/dL (2.2-3.7); Glomerular Filtration Rate 36; Glucose 93 mg/dL (70-105); Lactate Dehydrogenase 237 U/L (94-250); Phosphorous 3.2 mg/dL (2.7-4.5); Triglycerides 183 mg/dl (<150); Uric Acid 5.6 mg/dL (2.5-8.0)
[2019-06-26] MEDS: CARVEDILOL 12.5 MG TABLET PO SCH ×2 (07:08→17:04)
[2019-06-26] MEDS ORDERED: MAGNESIUM SULFATE 8.12 MEQ in DEXTROSE 5% IN WATER 50 ML IV ONE (07:13)
--- NOTE | 2019-06-26 07:18 | Internal Med Progress Note ---
Medical - PN: Subj Patient information: Note initiated : 06/26/19 at 7:10 am Service Date, if different from initiated Date: [] Patient: Kathleen Avitia a 68 y/o F admitted on 06/25/19 for weakness. Chief Complaint: [] Interval history: Ms. Avitia is a 68 year old F with a history of carbonic respiratory failure from sleep apnea/CAD/CHF and CKD stage IIIa who presents with worsening mental status change consultant the last 24 hours. Her found her laying like a heap unable to respond. Patient cannot recollect the events prior to presentation to the ER. She has been sleeping all day unable not able to get up and perform ADL. She however did not experience fever, shaking chills, diarrhea, cough, incontinence or seizure-like episodes. With increasing concern she was brought into the ER by her . Initial work-up revealed creatinine 1.9 along with mild hypoxia on ABG. Patient started on oxygen/crystalloids. She is on multiple pain medication including fentanyl\Dilaudid/lorazepam/methocarbamol/gabapentin. Remains high probability polypharmacy related somnolence. Hospitalist service was consulted At the time of evaluation no family members are present. Patient is more alert and able to answer some of the questions. She denies chest pain, lightheadedness, dizziness but endorses a severe fatigue lethargic. Unable to recollect any events over the last 24 hours. She denies changes in medications or recent exposure to sick contacts. 06/26 Slept most night. No overnight events. No new complaints. She does admit to coughing occasionally after eating and drinking and her notices as well. She does complain of diarrhea. She wears 2 L of oxygen at night and is not always compliant with her CPAP machine. Has headache. Review of Systems: denies fever/chills/nausea/vomiting/chest or abdominal pain/cough/dyspnea. Otherwise see above. - Constitutional Vitals: Vital Signs Temp Pulse Resp BP Pulse Ox 98 F 72 16 158/73 95 06/26/19 03:29 06/26/19 03:29 06/26/19 03:29 06/26/19 03:29 06/26/19 03:29 Period Temp Pulse Resp BP Sys/Connolly Pulse Ox Last 24 Hr 98 F-98.6 F 64-74 16-20 156-182/64-85 92-97 Intake and Output 06/25/19 06/26/19 06/26/19 21:59 05:59 13:59 Intake Total 450 1081 Output Total 1100 950 200 Balance -650 131 -200 Weight 94.347 kg Intake & Output: Intake & Output 06/25/19 06/26/19 06/26/19 21:59 05:59 13:59 Intake Total 450 1081 Output Total 1100 950 200 Balance -650 131 -200 Weight 94.347 kg Intake: IV 956 Sodium Chloride 0.9% 1,000 ml @ 956 75 mls/hr IV .[id number] [facility] Rx#: [id number] Oral 450 125 Output: Void Amount 1100 950 200 Other: Meal Dinner Percent of Meal Consumed 50% Urine Appearance Clear Urine Color Dark Yellow Stool Consistency Loose # Voids 1 # Bowel Movements 1 Exam: General: Alert, Awake, No acute Distress Eyes/N/T: EOMI, Head/Neck: neck supple, CV: RRR, 2/6 SM Pulm: mild rales at bases, no wheezing Abd: soft, nontender, +BS x4 Ext: no clubbing/cyanosis, mild b/l LE edema Neuro: Alert, no focal deficits, moves all extremities, Skin: warm/dry Medical - PN: Obj Da - Labs CBC & Chem 7: 06/26/19 04:35 06/26/19 04:35 Labs: Abnormal Lab Results 06/26/19 06/26/19 06/25/19 04:35 04:35 09:48 WBC 4.0 L RBC 3.36 L Hgb 10.2 L Hct 30.8 L POC Hct RDW 15.7 H Plt Count 122 L Lymph # (Auto) 1.3 L ABG Methemoglobin VBG pH VBG pCO2 VBG pO2 VBG HCO3 VBG Total CO2 VBG O2 Saturation VBG Base Excess Carboxyhemoglobin Total Hemoglobin Carbon Dioxide 32 H POC Total CO2 Creatinine 1.5 H POC Creatinine POC WB Ioniz Calcium Magnesium 1.5 L GGT 178 H AST 44 H Total Protein 5.8 L Albumin 3.0 L Triglycerides 183 H Lipase Urine Protein 100 A 06/25/19 06/24/19 06/24/19 09:05 23:50 23:10 WBC RBC 3.68 L Hgb 11.0 L Hct 33.4 L POC Hct 29.0 L RDW 15.0 H Plt Count 136 L Lymph # (Auto) 1.2 L ABG Methemoglobin 0.3 L VBG pH 7.43 H VBG pCO2 53.8 H VBG pO2 91 H VBG HCO3 34.5 H VBG Total CO2 36.2 H VBG O2 Saturation 94.6 H VBG Base Excess 8.8 H Carboxyhemoglobin 2.6 H Total Hemoglobin 10.0 L Carbon Dioxide 32 H POC Total CO2 31 H Creatinine 1.8 H POC Creatinine 1.9 H POC WB Ioniz Calcium 1.13 L Magnesium GGT AST 51 H Total Protein Albumin Triglycerides Lipase 106 H Urine Protein 06/24/19 23:10 WBC RBC 3.31 L Hgb 10.1 L Hct 30.3 L POC Hct RDW 14.9 H Plt Count 127 L Lymph # (Auto) 1.2 L ABG Methemoglobin VBG pH VBG pCO2 VBG pO2 VBG HCO3 VBG Total CO2 VBG O2 Saturation VBG Base Excess Carboxyhemoglobin Total Hemoglobin Carbon Dioxide POC Total CO2 Creatinine POC Creatinine POC WB Ioniz Calcium Magnesium GGT AST Total Protein Albumin Triglycerides Lipase Urine Protein Meds: Medications Acetaminophen (Tylenol) 650 mg PO Q6HP PRN PRN Reason: PAIN/FEVER > 101 Albuterol Sulfate (Ventolin) 2 puff INH Q4-6HP PRN PRN Reason: Shortness Of Breath Amlodipine Besylate (Norvasc) 10 mg PO DAILY [facility] Last Admin: 06/25/19 08:51 Dose: 10 mg Documented by: Aspirin (Aspirin) 81 mg PO DAILY [facility] Last Admin: 06/25/19 08:50 Dose: 81 mg Documented by: Atorvastatin Calcium (Lipitor) 20 mg PO HS [facility] Last Admin: 06/25/19 20:18 Dose: 20 mg Documented by: Carvedilol (Coreg) 12.5 mg PO BIDCC [facility] Last Admin: 06/26/19 07:08 Dose: 12.5 mg Documented by: Docusate Sodium (Colace) 200 mg PO QDAY [facility] Last Admin: 06/25/19 08:50 Dose: 200 mg Documented by: Ergocalciferol (Drisdol) 50,000 unit PO MoFr@0900 [facility] Last Admin: 06/25/19 08:50 Dose: 50,000 unit Documented by: Fenofibrate (Antara) 129 mg PO DAILY [facility] Last Admin: 06/25/19 08:51 Dose: 129 mg Documented by: Fentanyl (Duragesic) 25 mcg TOPICAL Q72H [facility] Last Admin: 06/25/19 10:31 Dose: 25 mcg Documented by: Furosemide (Lasix) 20 mg PO DAILY [facility] Last Admin: 06/25/19 08:51 Dose: 20 mg Documented by: Hydralazine HCl (Apresoline) 10 - 20 mg IV Q2HP PRN PRN Reason: Hypertension Last Admin: 06/26/19 05:44 Dose: 10 mg Documented by: Hydrochlorothiazide (Oretic) 12.5 mg PO DAILY [facility] Last Admin: 06/25/19 08:50 Dose: 12.5 mg Documented by: Hydromorphone HCl (Dilaudid) 4 mg PO Q4HP PRN PRN Reason: PAIN LEVEL 3-6 Last Admin: 06/26/19 07:08 Dose: 4 mg Documented by: Sodium Chloride (Sodium Chloride 0.9%) 1,000 mls @ 75 mls/hr IV .[id number] [facility] Last Admin: 06/25/19 23:17 Dose: 75 mls/hr Documented by: Labetalol HCl (Trandate) 0 mg IV Q2HP PRN PRN Reason: Hypertension Lorazepam (Ativan) 2 mg PO BIDP PRN PRN Reason: Anxiety Last Admin: 06/25/19 17:39 Dose: 2 mg Documented by: Methocarbamol (Robaxin) 750 mg PO Q6HP PRN PRN Reason: Pain Ondansetron HCl (Zofran) 4 mg IV Q4HP PRN PRN Reason: Nausea And Vomiting Fexofenadine Hcl [ Allergy Relief] 60 Mg Tab 1 dose PO BID [facility] Last Admin: 06/25/19 20:19 Dose: Not Given Documented by: Rizatriptan Benzoate ([Maxalt] 10 Mg Tab) 1 dose PO DAILYP PRN PRN Reason: Migraine Headache Triamcinolone Acetonide [Nasacort] Nasal [place] 2 dose ADILENE DAILY [facility] Last Admin: 06/25/19 09:51 Dose: Not Given Documented by: Prochlorperazine (Compazine) 10 mg PO Q4HP PRN PRN Reason: Nausea Senna/Docusate Sodium (Senna Plus Tablet) 3 tab PO DAILY [facility] Last Admin: 06/25/19 08:51 Dose: 3 tab Documented by: Sertraline HCl (Zoloft) 100 mg PO DAILY [facility] Last Admin: 06/25/19 08:51 Dose: 100 mg Documented by: - ABG Interpretation ABG results: 06/24/19 23:50 ABG Methemoglobin 0.3 L VBG pH 7.43 H VBG pCO2 53.8 H VBG pO2 91 H VBG HCO3 34.5 H VBG Total CO2 36.2 H VBG O2 Saturation 94.6 H VBG Base Excess 8.8 H Medical - PN: A/P - Time Spent With Patient Total time spent is greater than 50% in coordination of care (as documented) at patient's floor/unit and/or counseling patient: - Narrative A/P Narrative: A: *Encephalopathy: likely multifactorial including polypharmacy(fentanyl, gabapentin, dilaudid, ativan, robaxin)/hypercapnic hypoxic encephalopathy. -resolved *Aspiration pneumonitis suspected: -CXR with right side infiltrate *NAPOLEON on CKD III (baseline cr ?~1.4): improving *GLENNA w/hypercapnic/hypoxic resp failure noted on VBG in ED and subsequent ABG with low O2: -home CPAP not always compliant -suppose to use 2L O2@night *Abdominal pain unclear etiology. Negative CT scan: no complaint today *HTN: Coreg/CCB/thiazide/ARB *Anxiety disorder: continue sertraline *Chronic pain: on hydromorphone/fentanyl/gabapentin methocarbamol, lower fentanyl dose 25 *h/o migraine: on rizatriptan *h/o CAD: on ASA/Statin/BB/ARB *Obese *Diarrhea: Plan: -wean off O2 -ST eval, dysphagia diet until seen -BiPAP if evidence of hypercapnic respiratory failure -f/u CXR -Hold Dilaudid and lower fentanyl dose, decrease sedating meds upon d/c -hold ARB/lasix for [place] -d/c colace, check c.diff -PT/ OT nutrition support -ppx: heparin full code Medical - PN: Qual - Stroke Symptom Onset Unknown: No - VTE Deep Vein Thrombosis/Pulmonary Embolism Present on Admission: No
[2019-06-26] MEDS: GABAPENTIN 100 MG CAPSULE PO SCH ×3 (08:26→20:59)
[2019-06-26] MEDS: FENOFIBRATE 43 MG CAPSULE PO SCH (08:26)
[2019-06-26] MEDS: amLODIPine 10 MG TABLET PO SCH (08:26)
[2019-06-26] MEDS: SENNOSIDES/DOCUSATE SODIUM 1 TAB TABLET PO SCH (08:26)
[2019-06-26] MEDS: HYDROCHLOROTHIAZIDE 12.5 MG CAPSULE PO SCH (08:26)
[2019-06-26] MEDS: ASPIRIN 81 MG TAB.CHEW PO SCH (08:26)
[2019-06-26] MEDS: DOCUSATE SODIUM 100 MG CAPSULE PO SCH (08:26)
[2019-06-26] MEDS: SERTRALINE 100 MG TABLET PO SCH (08:26)
[2019-06-26] MEDS: [UNRECOGNIZED DRUG - REMARK] PO SCH ×2 (08:27→21:00)
[2019-06-26] MEDS: TRIAMCINOLONE ACETONIDE NAS SCH (08:27)
--- NOTE | 2019-06-26 09:25 | XRay Report ---
CLINICAL INFORMATION: new right side infiltrate, ?aspiration COMPARISON: 06/25/2019 FINDINGS: Borderline cardiomegaly is unchanged. Port-A-Cath is stable satisfactory position. Mediastinum and pulmonary vessels are normal. Moderate patchy right perihilar infiltrate has improved from yesterday's study. No effusion IMPRESSION: Improving right lung infiltrate - moderate patchy perihilar residual. Interpreted and Authenticated by: Nacho Vaz 06/26/19
[2019-06-26] MEDS: LACTOBACILLUS 1 CAPSULE PO SCH ×2 (09:57→20:59)
[2019-06-26] MEDS: LORazepam 1 MG TABLET PO PRN ×2 (11:58→20:59)
[2019-06-26] MEDS: LABETALOL 5 MG/ML ML IV PRN ×2 (12:28→17:11)
[2019-06-26] MEDS: 0.9 % SODIUM CHLORIDE 1,000 ML IV SCH (13:29)
[2019-06-26] MEDS: ATORVASTATIN 20 MG TABLET PO SCH (20:59)
[2019-06-26] MEDS: METHOCARBAMOL 500 MG TABLET PO PRN (22:30)
[2019-06-27] MEDS: HYDROmorphone 2 MG TABLET PO PRN ×4 (01:13→19:41)
[2019-06-27] MEDS: LABETALOL 5 MG/ML ML IV PRN (05:18)
[2019-06-27 06:13] LABS: Basophils # (Auto) 0 K/mcL (0.0-0.3); Basophils % (Auto) 0.3 % (0.0-2.0); Eosinophils # (Auto) 0.2 K/mcL (0.0-0.7); Eosinophils % (Auto) 3.1 % (0.0-7.0); Granulocytes % (Auto) 59.8 % (38.0-78.0); Hematocrit 32.9 % (36.0-48.0); Hemoglobin 10.8 g/dL (12.0-15.0); Lymphocytes # (Auto) 1.5 K/mcL (1.5-4.8); Lymphocytes % (Auto) 29.5 % (15.5-49.0); Mean Cell Volume 90.6 fL (80.0-100.0); Mean Corpuscular HGB Conc 32.9 g/dL (31.0-36.0); Mean Platelet Volume 7.9 fL (7.4-10.4); Monocytes # (Auto) 0.4 K/mcL (0.1-0.9); Monocytes % (Auto) 7.3 % (1.0-12.0); Platelet Count 134 K/mcL (140-440); RBC 3.63 M/mcL (4.00-5.20); Red Cell Distribution Width 15.5 % (11.5-14.5)
[2019-06-27 06:17] LABS: ALT/SGPT 16 U/l (0-40); AST/SGOT 49 U/l (0-37); Albumin 3.2 gm/dL (3.2-5.2); Alkaline Phosphatase 82 U/L (39-117); Bilirubin,Direct < 0.2 mg/dL (0.0-0.3); Bilirubin,Total 0.5 mg/dL (0.0-1.0); Blood Urea Nitrogen 21 mg/dl (8-23); Calcium 8.7 mg/dl (8.6-10.4); Carbon Dioxide 28 mmol/L (22-30); Chloride 102 mmol/L (96-108); Globulin 3.1 gm/dL (2.2-3.7); Glomerular Filtration Rate 33; Glucose 91 mg/dL (70-105); Lactate Dehydrogenase 248 U/L (94-250); Phosphorous 3.7 mg/dL (2.7-4.5); Triglycerides 208 mg/dl (<150); Uric Acid 5.8 mg/dL (2.5-8.0)
[2019-06-27] MEDS: 0.9 % SODIUM CHLORIDE 1,000 ML IV SCH ×2 (07:09→21:18)
[2019-06-27] MEDS ORDERED: cloNIDine HCL 0.1 MG TABLET PO PRN (08:01)
--- NOTE | 2019-06-27 08:02 | Internal Med Progress Note ---
Medical - PN: Subj Patient information: Note initiated : 06/27/19 at 7:50 am Service Date, if different from initiated Date: [] Patient: Kathleen Avitia a 68 y/o F admitted on 06/25/19 for weakness. Chief Complaint: [] Interval history: Ms. Avitia is a 68 year old F with a history of carbonic respiratory failure from sleep apnea/CAD/CHF and CKD stage IIIa who presents with worsening mental status change management director the last 24 hours. Her found her laying like a heap unable to respond. Patient cannot recollect the events prior to presentation to the ER. She has been sleeping all day unable not able to get up and perform ADL. She however did not experience fever, shaking chills, diarrhea, cough, incontinence or seizure-like episodes. With increasing concern she was brought into the ER by her . Initial work-up revealed creatinine 1.9 along with mild hypoxia on ABG. Patient started on oxygen/crystalloids. She is on multiple pain medication including fentanyl\Dilaudid/lorazepam/methocarbamol/gabapentin. Remains high probability polypharmacy related somnolence. Hospitalist service was consulted At the time of evaluation no family members are present. Patient is more alert and able to answer some of the questions. She denies chest pain, lightheadedness, dizziness but endorses a severe fatigue lethargic. Unable to recollect any events over the last 24 hours. She denies changes in medications or recent exposure to sick contacts. 06/26 Slept most night. No overnight events. No new complaints. She does admit to coughing occasionally after eating and drinking and her notices as well. She does complain of diarrhea. She wears 2 L of oxygen at night and is not always compliant with her CPAP machine. Has headache. 06/27 Diarrhea overnight. Did not tolerate the liquid vancomycin but this taste, will switch to Flagyl. Tired but otherwise no new complaints. C. difficile positive overnight. Patient reports dog has diarrhea at this time. Review of Systems: denies fever/chills/nausea/vomiting/chest or abdominal pain/cough/dyspnea. Otherwise see above. - Constitutional Vitals: Vital Signs Temp Pulse Resp BP Pulse Ox 98.1 F 74 20 197/80 96 06/27/19 07:48 06/27/19 04:14 06/27/19 07:48 06/27/19 07:48 06/27/19 07:48 Period Temp Pulse Resp BP Sys/Connolly Pulse Ox Last 24 Hr 97.9 F-98.9 F 62-74 14-24 144-200/64-85 90-96 Intake and Output 06/26/19 06/27/19 06/27/19 21:59 05:59 13:59 Intake Total 1000 Output Total 650 300 Balance -650 700 Weight 93.894 kg Intake & Output: Intake & Output 06/26/19 06/27/19 06/27/19 21:59 05:59 13:59 Intake Total 1000 Output Total 650 300 Balance -650 700 Weight 93.894 kg Intake: IV 1000 Sodium Chloride 0.9% 1,000 ml @ 1000 75 mls/hr IV .[id number] [facility] Rx#: [id number] Oral 0 Output: Void Amount 650 300 Other: Meal Dinner Percent of Meal Consumed 75% Urine Appearance Clear Clear Clear Urine Color Bright Yellow Bright Yellow Straw Urine Odor Normal Normal Stool Size Small Stool Color Brown Stool Consistency Loose # Voids 1 # Bowel Movements 1 Exam: General: Alert, Awake, No acute Distress Eyes/N/T: EOMI, Head/Neck: neck supple, CV: RRR, 2/6 SM Pulm: mild rales at bases, no wheezing Abd: soft, nontender, +BS x4 Ext: no clubbing/cyanosis, mild b/l LE edema Neuro: Alert, no focal deficits, moves all extremities, Skin: warm/dry Medical - PN: Obj Da - Labs CBC & Chem 7: 06/27/19 04:33 06/27/19 04:33 Labs: Abnormal Lab Results 06/27/19 06/27/19 06/26/19 04:33 04:33 04:35 WBC 4.0 L RBC 3.63 L 3.36 L Hgb 10.8 L 10.2 L Hct 32.9 L 30.8 L POC Hct RDW 15.5 H 15.7 H Plt Count 134 L 122 L Lymph # (Auto) 1.3 L ABG Methemoglobin VBG pH VBG pCO2 VBG pO2 VBG HCO3 VBG Total CO2 VBG O2 Saturation VBG Base Excess Carboxyhemoglobin Total Hemoglobin Carbon Dioxide POC Total CO2 Creatinine 1.6 H POC Creatinine POC WB Ioniz Calcium Magnesium GGT 184 H AST 49 H Total Protein Albumin Triglycerides 208 H Lipase Urine Protein 06/26/19 06/25/19 06/25/19 04:35 09:48 09:05 WBC RBC 3.68 L Hgb 11.0 L Hct 33.4 L POC Hct RDW 15.0 H Plt Count 136 L Lymph # (Auto) 1.2 L ABG Methemoglobin VBG pH VBG pCO2 VBG pO2 VBG HCO3 VBG Total CO2 VBG O2 Saturation VBG Base Excess Carboxyhemoglobin Total Hemoglobin Carbon Dioxide 32 H POC Total CO2 Creatinine 1.5 H POC Creatinine POC WB Ioniz Calcium Magnesium 1.5 L GGT 178 H AST 44 H Total Protein 5.8 L Albumin 3.0 L Triglycerides 183 H Lipase Urine Protein 100 A 06/24/19 06/24/19 06/24/19 23:50 23:10 23:10 WBC RBC 3.31 L Hgb 10.1 L Hct 30.3 L POC Hct 29.0 L RDW 14.9 H Plt Count 127 L Lymph # (Auto) 1.2 L ABG Methemoglobin 0.3 L VBG pH 7.43 H VBG pCO2 53.8 H VBG pO2 91 H VBG HCO3 34.5 H VBG Total CO2 36.2 H VBG O2 Saturation 94.6 H VBG Base Excess 8.8 H Carboxyhemoglobin 2.6 H Total Hemoglobin 10.0 L Carbon Dioxide 32 H POC Total CO2 31 H Creatinine 1.8 H POC Creatinine 1.9 H POC WB Ioniz Calcium 1.13 L Magnesium GGT AST 51 H Total Protein Albumin Triglycerides Lipase 106 H Urine Protein Meds: Medications Acetaminophen (Tylenol) 650 mg PO Q6HP PRN PRN Reason: PAIN/FEVER > 101 Last Admin: 06/26/19 10:18 Dose: 650 mg Documented by: Albuterol Sulfate (Ventolin) 2 puff INH Q4-6HP PRN PRN Reason: Shortness Of Breath Amlodipine Besylate (Norvasc) 10 mg PO DAILY [facility] Last Admin: 06/26/19 08:26 Dose: 10 mg Documented by: Aspirin (Aspirin) 81 mg PO DAILY [facility] Last Admin: 06/26/19 08:26 Dose: 81 mg Documented by: Atorvastatin Calcium (Lipitor) 20 mg PO HS [facility] Last Admin: 06/26/19 20:59 Dose: 20 mg Documented by: Carvedilol (Coreg) 12.5 mg PO BIDCC [facility] Last Admin: 06/26/19 17:04 Dose: 12.5 mg Documented by: Ergocalciferol (Drisdol) 50,000 unit PO MoFr@0900 [facility] Last Admin: 06/25/19 08:50 Dose: 50,000 unit Documented by: Fenofibrate (Antara) 129 mg PO DAILY [facility] Last Admin: 06/26/19 08:26 Dose: 129 mg Documented by: Fentanyl (Duragesic) 25 mcg TOPICAL Q72H [facility] Last Admin: 06/25/19 10:31 Dose: 25 mcg Documented by: Furosemide (Lasix) 20 mg PO DAILY [facility] Gabapentin (Neurontin) 200 mg PO TID [facility] Last Admin: 06/26/19 20:59 Dose: 200 mg Documented by: Hydralazine HCl (Apresoline) 10 - 20 mg IV Q2HP PRN PRN Reason: Hypertension Last Admin: 06/26/19 21:00 Dose: 20 mg Documented by: Hydrochlorothiazide (Oretic) 12.5 mg PO DAILY [facility] Last Admin: 06/26/19 08:26 Dose: 12.5 mg Documented by: Hydromorphone HCl (Dilaudid) 3 mg PO Q4HP PRN PRN Reason: PAIN LEVEL 3-6 Last Admin: 06/27/19 01:13 Dose: 3 mg Documented by: Sodium Chloride (Sodium Chloride 0.9%) 1,000 mls @ 75 mls/hr IV .[id number] [facility] Last Admin: 06/27/19 07:09 Dose: 75 mls/hr Documented by: Labetalol HCl (Trandate) 0 mg IV Q2HP PRN PRN Reason: Hypertension Last Admin: 06/27/19 05:18 Dose: 20 mg Documented by: Lactobacillus Rhamnosus (Culturelle) 1 cap PO BID [facility] Last Admin: 06/26/19 20:59 Dose: 1 cap Documented by: Lorazepam (Ativan) 2 mg PO BIDP PRN PRN Reason: Anxiety Last Admin: 06/26/19 20:59 Dose: 2 mg Documented by: Methocarbamol (Robaxin) 500 mg PO Q6HP PRN PRN Reason: Pain Last Admin: 06/26/19 22:30 Dose: 500 mg Documented by: Ondansetron HCl (Zofran) 4 mg IV Q4HP PRN PRN Reason: Nausea And Vomiting Fexofenadine Hcl [ Allergy Relief] 60 Mg Tab 1 dose PO BID [facility] Last Admin: 06/26/19 21:00 Dose: Not Given Documented by: Rizatriptan Benzoate ([Maxalt] 10 Mg Tab) 1 dose PO DAILYP PRN PRN Reason: Migraine Headache Triamcinolone Acetonide [Nasacort] Nasal [place] 2 dose ADILENE DAILY [facility] Last Admin: 06/26/19 08:27 Dose: Not Given Documented by: Prochlorperazine (Compazine) 10 mg PO Q4HP PRN PRN Reason: Nausea Last Admin: 06/27/19 01:13 Dose: 10 mg Documented by: Senna/Docusate Sodium (Senna Plus Tablet) 3 tab PO DAILY [facility] Last Admin: 06/26/19 08:26 Dose: 3 tab Documented by: Sertraline HCl (Zoloft) 100 mg PO DAILY [facility] Last Admin: 06/26/19 08:26 Dose: 100 mg Documented by: - ABG Interpretation ABG results: 06/24/19 23:50 ABG Methemoglobin 0.3 L VBG pH 7.43 H VBG pCO2 53.8 H VBG pO2 91 H VBG HCO3 34.5 H VBG Total CO2 36.2 H VBG O2 Saturation 94.6 H VBG Base Excess 8.8 H Medical - PN: A/P - Time Spent With Patient Total time spent is greater than 50% in coordination of care (as documented) at patient's floor/unit and/or counseling patient: - Narrative A/P Narrative: A: *Encephalopathy: likely multifactorial including polypharmacy(fentanyl, gabapentin, dilaudid, ativan, robaxin)/hypercapnic hypoxic encephalopathy. -resolved *Aspiration pneumonitis suspected: -CXR with right side infiltrate *NAPOLEON on CKD III (baseline cr ?~1.4-1.5): improved *GLENNA w/hypercapnic/hypoxic resp failure noted on VBG in ED and subsequent ABG with low O2: -home CPAP not always compliant -suppose to use 2L O2@night -Oxygenating well, only uses oxygen while sleeping *Abdominal pain unclear etiology. Negative CT scan: no complaint today *HTN: Coreg/CCB/thiazide/ARB. Elevated *Anxiety d/o: continue sertraline and prn ativan *Chronic pain: on hydromorphone/fentanyl/gabapentin/methocarbamol, lower fentanyl dose 25 *h/o migraine: on rizatriptan *h/o CAD: on ASA/Statin/BB/ARB *Obese *c. diff colitis: Patient reports her pet dog has diarrhea at this time. Plan: -ST eval, dysphagia diet until seen -BiPAP if evidence of hypercapnic respiratory failure -lower fentanyl/dilaudid dose, decrease sedating meds upon d/c -hold ARB/lasix/hctz for now -cont coreg(increase), norvasc -Not tolerating liquid Vanco we will switch to Flagyl -PT/ OT nutrition support -f/u with dr. allen -ppx: heparin full code Medical - PN: Qual - Stroke Symptom Onset Unknown: No - VTE Deep Vein Thrombosis/Pulmonary Embolism Present on Admission: No
[2019-06-27] MEDS: GABAPENTIN 100 MG CAPSULE PO SCH ×3 (08:23→21:18)
[2019-06-27] MEDS: LACTOBACILLUS 1 CAPSULE PO SCH ×2 (08:24→21:19)
[2019-06-27] MEDS: SERTRALINE 100 MG TABLET PO SCH (08:24)
[2019-06-27] MEDS: FENOFIBRATE 43 MG CAPSULE PO SCH (08:24)
[2019-06-27] MEDS: ASPIRIN 81 MG TAB.CHEW PO SCH (08:24)
[2019-06-27] MEDS: CARVEDILOL 12.5 MG TABLET PO SCH ×2 (08:24→17:42)
[2019-06-27] MEDS: amLODIPine 10 MG TABLET PO SCH (08:24)
[2019-06-27] MEDS: HYDROCHLOROTHIAZIDE 12.5 MG CAPSULE PO SCH (08:24)
[2019-06-27] MEDS: SENNOSIDES/DOCUSATE SODIUM 1 TAB TABLET PO SCH (08:25)
[2019-06-27] MEDS: TRIAMCINOLONE ACETONIDE NAS SCH (08:25)
[2019-06-27] MEDS: [UNRECOGNIZED DRUG - REMARK] PO SCH ×2 (08:25→21:23)
[2019-06-27] MEDS ORDERED: FUROSEMIDE 20 MG TABLET PO SCH (09:00)
[2019-06-27] MEDS ORDERED: VANCOMYCIN ORAL SOL 1,000 MG/10 ML BOTTLE PO SCH (09:00)
[2019-06-27] MEDS: LORazepam 1 MG TABLET PO PRN ×3 (09:50→22:03)
[2019-06-27] MEDS ORDERED: CARVEDILOL 12.5 MG TABLET PO ONE (10:32)
[2019-06-27] MEDS: metroNIDAZOLE 500 MG TABLET PO SCH ×3 (10:40→22:03)
--- NOTE | 2019-06-27 12:21 | Discharge Summary ---
Medical - DS: Prov Patient information: Note initiated : 06/27/19 at 12:16 pm Service Date, if different from initiated Date: [] Patient: Kathleen Avitia 68 y/o F admitted on 06/26/19 for weakness. Chief Complaint: [] Date of admission: 06/26/19 17:44 Discharge date: 06/28/19 Primary care physician: Delicia Jones Consults: 06/25/19 Consult to Physician [CONS] Stat Comment: Consulting Provider: Mynor Anand Reason For Exam: Physician to Consult Medical - DS: Meds - Discharge Medications Prescriptions: Carvedilol [Coreg] 25 mg PO BID #60 tab fentaNYL [Duragesic] 25 mcg TOPICAL Q72H #4 patch Gabapentin [Neurontin] 400 mg PO TID #10 tab HYDROmorphone [Dilaudid] 3 mg PO Q4HP PRN #10 tab PRN Reason: Pain Level 3-6 metroNIDAZOLE [Flagyl] 500 mg PO Q8 #27 tab Active and Home Medications: Home Medications Aspirin [Hetal Chewable Aspirin] 81 mg PO DAILY 10/28/15 [History Confirmed 06/25/19 Last Taken 06/23/19 08:00] Atorvastatin [Lipitor] 20 mg PO HS 10/28/15 [History Confirmed 06/25/19 Last Taken 06/23/19 20:00] Carvedilol [Coreg] 12.5 mg PO BIDCC 10/28/15 [History Confirmed 06/25/19 Last Taken 06/23/19 20:00] Fenofibrate Nanocrystallized [Tricor] 145 mg PO DAILY 10/28/15 [History Confirmed 06/25/19 Last Taken 06/23/19 08:00] Furosemide [Lasix] 20 mg PO DAILY 10/28/15 [History Confirmed 06/25/19 Last Taken 03/26/18] Rizatriptan Benzoate [Maxalt] 10 mg PO DAILY 10/28/15 [History Confirmed 06/25/19 Last Taken 03/26/18] amLODIPine [Norvasc] 10 mg PO DAILY 10/28/15 [History Confirmed 06/25/19 Last Taken 06/23/19 08:00] Gabapentin [Neurontin] 800 mg PO TID 10/29/15 [History Confirmed 06/25/19 Last Taken 06/23/19 20:00] Methocarbamol [Robaxin] 750 mg PO Q6HP PRN 10/29/15 [History Confirmed 06/25/19 Last Taken 03/26/18] Niacin (Inositol Niacinate) [Niacin 500 mg Capsule] 500 mg PO HS 10/29/15 [History Confirmed 06/25/19 Last Taken 06/24/19 20:00] Sennosides/Docusate Sodium [Senna-Docusate Sodium Tablet] 3 tab PO DAILY 10/29/15 [History Confirmed 06/25/19 Last Taken 06/23/19 20:00] Docusate Sodium [Colace] 200 mg PO QDAY 03/12/17 [History Confirmed 06/25/19 Last Taken 06/24/19 08:00] Ergocalciferol (Vitamin D2) [Vitamin D2] 50,000 unit PO WEEKLY 03/12/17 [History Confirmed 06/25/19 Last Taken 06/21/19 08:00] Triamcinolone Acetonide [Nasacort] 2 spray INTRANASAL DAILY 03/12/17 [History Confirmed 06/25/19 Last Taken 06/24/19 08:00] Albuterol Sulfate [Ventolin] 2 puff INH Q4-6HP PRN 03/23/18 [History Confirmed 06/25/19 Last Taken Unknown] fentanyl 50 mcg/hr transdermal patch 1 patch TRANSDERMA Q48H each 07/29/18 [History Confirmed 06/25/19 Last Taken 06/23/19 08:00] hydromorphone 4 mg tablet 4 mg PO Q4H PRN 07/29/18 [History Confirmed 06/25/19 Last Taken 06/24/19 17:00] fexofenadine 60 mg tablet 60 mg PO BID 08/26/18 [History Confirmed 06/25/19 Last Taken Unknown] hydrochlorothiazide 12.5 mg tablet 12.5 mg PO QDAY 08/26/18 [History Confirmed 06/25/19 Last Taken Unknown] lorazepam 1 mg tablet 2 mg PO BID PRN tab 08/26/18 [History Confirmed 06/25/19 Last Taken 06/24/19 17:00] prochlorperazine maleate 10 mg tablet 10 mg PO Q4HP PRN tab 08/26/18 [History Confirmed 06/25/19 Last Taken 06/23/19 08:00] sertraline 100 mg tablet 100 mg PO DAILY tab 08/26/18 [History Confirmed 06/25/19 Last Taken 06/23/19 08:00] Cozaar 100 mg PO QDAY 06/25/19 [History Confirmed 06/25/19 Last Taken 06/24/19 08:00] Proventil Hfa 2 puff INH Q6 06/25/19 [History Confirmed 06/25/19 Last Taken 06/24/19 08:00] Home Medications Aspirin [Hetal Chewable Aspirin] 81 mg PO DAILY 10/28/15 [History Confirmed 06/25/19 Last Taken 06/23/19 08:00] Atorvastatin [Lipitor] 20 mg PO HS 10/28/15 [History Confirmed 06/25/19 Last Taken 06/23/19 20:00] Fenofibrate Nanocrystallized [Tricor] 145 mg PO DAILY 10/28/15 [History Confirmed 06/25/19 Last Taken 06/23/19 08:00] Furosemide [Lasix] 20 mg PO DAILY 10/28/15 [History Confirmed 06/25/19 Last Taken 03/26/18] Rizatriptan Benzoate [Maxalt] 10 mg PO DAILY 10/28/15 [History Confirmed 06/25/19 Last Taken 03/26/18] amLODIPine [Norvasc] 10 mg PO DAILY 10/28/15 [History Confirmed 06/25/19 Last Taken 06/23/19 08:00] Methocarbamol [Robaxin] 750 mg PO Q6HP PRN 10/29/15 [History Confirmed 06/25/19 Last Taken 03/26/18] Niacin (Inositol Niacinate) [Niacin 500 mg Capsule] 500 mg PO HS 10/29/15 [History Confirmed 06/25/19 Last Taken 06/24/19 20:00] Sennosides/Docusate Sodium [Senna-Docusate Sodium Tablet] 3 tab PO DAILY 10/29/15 [History Confirmed 06/25/19 Last Taken 06/23/19 20:00] Docusate Sodium [Colace] 200 mg PO QDAY 03/12/17 [History Confirmed 06/25/19 Last Taken 06/24/19 08:00] Ergocalciferol (Vitamin D2) [Vitamin D2] 50,000 unit PO WEEKLY 03/12/17 [History Confirmed 06/25/19 Last Taken 06/21/19 08:00] Triamcinolone Acetonide [Nasacort] 2 spray INTRANASAL DAILY 03/12/17 [History Confirmed 06/25/19 Last Taken 06/24/19 08:00] Albuterol Sulfate [Ventolin] 2 puff INH Q4-6HP PRN 03/23/18 [History Confirmed 06/25/19 Last Taken Unknown] fexofenadine 60 mg tablet 60 mg PO BID 08/26/18 [History Confirmed 06/25/19 Last Taken Unknown] hydrochlorothiazide 12.5 mg tablet 12.5 mg PO QDAY 08/26/18 [History Confirmed 06/25/19 Last Taken Unknown] lorazepam 1 mg tablet 2 mg PO BID PRN tab 08/26/18 [History Confirmed 06/25/19 Last Taken 06/24/19 17:00] prochlorperazine maleate 10 mg tablet 10 mg PO Q4HP PRN tab 08/26/18 [History Confirmed 06/25/19 Last Taken 06/23/19 08:00] sertraline 100 mg tablet 100 mg PO DAILY tab 08/26/18 [History Confirmed 06/25/19 Last Taken 06/23/19 08:00] Cozaar 100 mg PO QDAY 06/25/19 [History Confirmed 06/25/19 Last Taken 06/24/19 08:00] Proventil Hfa 2 puff INH Q6 06/25/19 [History Confirmed 06/25/19 Last Taken 06/24/19 08:00] Gabapentin [Neurontin] 400 mg PO TID #10 tab 06/27/19 [Rx Last Taken Unknown] HYDROmorphone [Dilaudid] 3 mg PO Q4HP PRN #10 tab 06/27/19 [Rx Last Taken Unknown] fentaNYL [Duragesic] 25 mcg TOPICAL Q72H #4 patch 06/27/19 [Rx Last Taken Unknown] metroNIDAZOLE [Flagyl] 500 mg PO Q8 #27 tab 06/27/19 [Rx Last Taken Unknown] Carvedilol [Coreg] 25 mg PO BID #60 tablet 06/28/19 [Rx Last Taken Unknown] Medical - DS: Hosp Hospital Course: Ms. 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 Her found her laying like a heap unable to respond. Patient cannot recollect the events prior to presentation to the ER. She has been sleeping all day unable not able to get up and perform ADL. She however did not experience fever, shaking chills, diarrhea, cough, incontinence or seizure-like episodes. With increasing concern she was brought into the ER by her . Initial work-up revealed creatinine 1.9 along with mild hypoxia on ABG. Patient started on oxygen/crystalloids. She is on multiple pain medication including fentanyl\Dilaudid/lorazepam/methocarbamol/gabapentin. Remains high probability polypharmacy related somnolence. Hospitalist service was consulted At the time of evaluation no family members are present. Patient is more alert and able to answer some of the questions. She denies chest pain, lightheadedness, dizziness but endorses a severe fatigue lethargic. Unable to recollect any events over the last 24 hours. She denies changes in medications or recent exposure to sick contacts. 06/26 Slept most night. No overnight events. No new complaints. She does admit to coughing occasionally after eating and drinking and her notices as well. She does complain of diarrhea. She wears 2 L of oxygen at night and is not always compliant with her CPAP machine. Has headache. 06/27 Diarrhea overnight. Did not tolerate the liquid vancomycin but this taste, will switch to Flagyl. Tired but otherwise no new complaints. C. difficile positive overnight. patient reports dog has diarrhea at this time. 06/28 diarrhea, seems to wax and wane with improvement. Overall feeling better. Speech therapy evaluation done, and is stable for discharge. Discharge diagnosis: Encephalopathy from medications and GLENNA . colitis Secondary discharge diagnosis: Acute on chronic kidney disease aspiration pneumonitis hypertension anxiety chronic pain migraines history of CAD obesity C. difficile colitis - Time Spent with Patient Total time spent providing and/or coordinating discharge services: Greater than 30 minutes Medical - DS: Exam - Constitutional Vitals: Vital Signs Temp Pulse Resp BP BP BP Pulse Ox 06/27/19 11:04 70 182/78 93 06/27/19 09:52 172/64 06/27/19 07:48 98.1 F 20 197/80 96 06/27/19 04:14 98.1 F 74 18 184/80 96 06/26/19 23:37 72 20 90 06/26/19 19:23 97.9 F 72 20 175/77 96 06/26/19 17:37 184/74 06/26/19 17:27 189/75 06/26/19 17:17 200/77 06/26/19 17:10 195/85 06/26/19 15:48 97.9 F 71 20 176/79 94 06/26/19 13:05 144/64 06/26/19 12:55 144/64 06/26/19 12:45 146/64 06/26/19 12:36 62 14 150/68 91 06/26/19 12:24 157/71 Intake and Output 06/26/19 06/27/19 06/27/19 21:59 05:59 13:59 Intake Total 1000 Output Total 650 300 425 Balance -650 700 -425 Intake: IV 1000 Sodium Chloride 0.9% 1,000 ml @ 1000 75 mls/hr IV .[id number] [facility] Rx#: [id number] Oral 0 Output: Void Amount 650 300 375 Emesis 50 Other: Meal Dinner Breakfast Percent of Meal Consumed 75% 25% Urine Appearance Clear Clear Clear Urine Color Bright Yellow Bright Yellow Straw Urine Odor Normal Normal Stool Size Small Moderate Stool Color Brown Brown Stool Consistency Loose Soft # Voids 1 # Bowel Movements 1 1 Weight 93.894 kg Medical - DS: Data Labs on day of discharge: Labs from last 24 hours 06/27/19 06/27/19 04:33 04:33 WBC 5.0 RBC 3.63 L Hgb 10.8 L Hct 32.9 L MCV 90.6 MCH 29.8 MCHC 32.9 RDW 15.5 H Plt Count 134 L MPV 7.9 Gran % 59.8 Lymph % (Auto) 29.5 [place] % (Auto) 7.3 Eos % (Auto) 3.1 Baso % (Auto) 0.3 Gran # 3.0 Lymph # (Auto) 1.5 [place] # (Auto) 0.4 Eos # (Auto) 0.2 Baso # (Auto) 0 Sodium 142 Potassium 3.6 Chloride 102 Carbon Dioxide 28 Anion Gap 12.0 BUN 21 Creatinine 1.6 H GFR Calculation 33 Glucose 91 Uric Acid 5.8 Calcium 8.7 Phosphorus 3.7 Magnesium 1.8 Total Bilirubin 0.5 Direct Bilirubin < 0.2 GGT 184 H AST 49 H ALT 16 Alkaline Phosphatase 82 Lactate Dehydrogenase 248 Total Protein 6.3 Albumin 3.2 Globulin 3.1 Albumin/Globulin Ratio 1.0 Triglycerides 208 H Medical - DS: A/P - Patient/Caregiver Discharge Instructions Activity: increase activity as tolerated Diet: Cardiac (follow Speech Therapy recommendations) Additional Instructions: Use CPAP at night Prescriptions: Carvedilol [Coreg] 25 mg PO BID #60 tab fentaNYL [Duragesic] 25 mcg TOPICAL Q72H #4 patch Gabapentin [Neurontin] 400 mg PO TID #10 tab HYDROmorphone [Dilaudid] 3 mg PO Q4HP PRN #10 tab PRN Reason: Pain Level 3-6 metroNIDAZOLE [Flagyl] 500 mg PO Q8 #27 tab - Follow up Plan Follow up with: Delicia Jones MD [Primary Care Provider] - Venancio Mix MD [Physician] - Disposition: Home, Self-Care Prognosis: Fair Rehab Potential: Fair Overall status at discharge: patient is progressing back to baseline Medical - DS: Qual - VTE Deep Vein Thrombosis/Pulmonary Embolism Present on Admission: No
--- NOTE | 2019-06-27 14:11 | XRay Report ---
CLINICAL INFORMATION: Follow-up right lung infiltrate COMPARISON: 06/25/2019 and 06/26/2019 FINDINGS: Heart size, mediastinum and pulmonary vessels are unremarkable. Right-sided Port-A-Cath is stable satisfactory position. Lungs are now clear. No effusions. IMPRESSION: Negative Interpreted and Authenticated by: Nacho Vaz 06/27/19
[2019-06-27] MEDS: cloNIDine HCL 0.1 MG TABLET PO PRN ×2 (16:13→22:01)
[2019-06-27] MEDS: ATORVASTATIN 20 MG TABLET PO SCH (21:19)
[2019-06-27] MEDS: METHOCARBAMOL 500 MG TABLET PO PRN (22:03)
[2019-06-28] MEDS: HYDROmorphone 2 MG TABLET PO PRN ×3 (03:57→12:48)
[2019-06-28] MEDS: metroNIDAZOLE 500 MG TABLET PO SCH ×2 (05:46→14:31)
[2019-06-28] MEDS ORDERED: FUROSEMIDE 20 MG/2 ML VIAL IV ONE (07:06)
[2019-06-28] MEDS ORDERED: FUROSEMIDE 40 MG/4 ML VIAL IV ONE (07:07)
[2019-06-28] MEDS ORDERED: CARVEDILOL 12.5 MG TABLET PO ONE ×2 (07:11→07:30)
[2019-06-28] MEDS ORDERED: CARVEDILOL 12.5 MG TABLET PO SCH ×2 (07:15→17:30)
[2019-06-28] MEDS: 0.9 % SODIUM CHLORIDE 1,000 ML IV SCH (08:01)
[2019-06-28] MEDS: ERGOCALCIFEROL (VITAMIN D2) 50,000 UNIT CAPSULE PO SCH (09:52)
[2019-06-28] MEDS: LACTOBACILLUS 1 CAPSULE PO SCH (09:52)
[2019-06-28] MEDS: amLODIPine 10 MG TABLET PO SCH (09:52)
[2019-06-28] MEDS: FENOFIBRATE 43 MG CAPSULE PO SCH (09:52)
[2019-06-28] MEDS: SERTRALINE 100 MG TABLET PO SCH (09:52)
[2019-06-28] MEDS: ASPIRIN 81 MG TAB.CHEW PO SCH (09:52)
[2019-06-28] MEDS: LORazepam 1 MG TABLET PO PRN (09:52)
[2019-06-28] MEDS: HYDROCHLOROTHIAZIDE 12.5 MG CAPSULE PO SCH (09:52)
[2019-06-28] MEDS: GABAPENTIN 100 MG CAPSULE PO SCH (09:52)
[2019-06-28] MEDS: SENNOSIDES/DOCUSATE SODIUM 1 TAB TABLET PO SCH (09:53)
[2019-06-28] MEDS: TRIAMCINOLONE ACETONIDE NAS SCH (09:53)
[2019-06-28] MEDS: [UNRECOGNIZED DRUG - REMARK] PO SCH (09:53)
[2019-06-28] MEDS ORDERED: LIDOCAINE PATCH TOPICAL SCH (10:00)
[2019-06-28] MEDS: fentaNYL 25 MCG PATCH TOPICAL SCH (10:25)
[2019-06-28] MEDS: METHOCARBAMOL 500 MG TABLET PO PRN (11:41)
[2019-06-28] MEDS ORDERED: HEPARIN SODIUM,PORCINE/PF 500 UNIT/5 ML SYRINGE IV ONE (14:02)
== END 2019-06-28 15:10 | disposition home or self-care (01) | DRG 91 ==
LOC: ED 22:34 → MEDSUR 22:34
PROVIDERS: ADMIT Internal Medicine; ATTEND Internal Medicine

== ENCOUNTER 2019-10-27 16:23 | Inpatient (IN) ==
--- NOTE | 2019-10-27 16:35 | Emergency Department Note ---
Neuro HPI - General Chief Complaint: Stroke Symptoms Stated Complaint: stroke symptoms Time Seen by Provider: 10/27/19 16:32 Source: patient Mode of arrival: ambulatory Limitations: no limitations - History of Present Illness HPI Narrative: This patient has had slurred speech for 2 days. Today it seems to be worse and associated with a right facial droop and slight weakness on the right side. This patient was recently at [place] where she had a GI bleed controlled. She is currently is not a TPA candidate. Denies chest pain abdominal pain na usea or vomiting. No headache. - Related Data Home Medications: Home Medications Medication Instructions Recorded Confirmed Atorvastatin [Lipitor] 20 mg PO HS 10/28/15 10/27/19 Fenofibrate Nanocrystallized 145 mg PO DAILY 10/28/15 10/27/19 [Tricor] Furosemide [Lasix] 20 mg PO DAILY 10/28/15 10/27/19 Rizatriptan Benzoate [Maxalt] 10 mg PO DAILY 10/28/15 10/27/19 Methocarbamol [Robaxin] 750 mg PO Q6HP PRN 10/29/15 10/27/19 Niacin (Inositol Niacinate) 500 mg PO HS 10/29/15 10/27/19 [Niacin 500 mg Capsule] Sennosides/Docusate Sodium 2 tab PO DAILY 10/29/15 10/27/19 [Senna-Docusate Sodium Tablet] Ergocalciferol (Vitamin D2) 50,000 unit PO WEEKLY 03/12/17 10/27/19 [Vitamin D2] Triamcinolone Acetonide [Nasacort] 2 spray INTRANASAL DAILY 03/12/17 10/27/19 lorazepam 1 mg tablet 2 mg PO Q8HP PRN tab 08/26/18 10/27/19 prochlorperazine maleate 10 mg 10 mg PO Q4HP PRN tab 08/26/18 10/27/19 tablet sertraline 100 mg tablet 200 mg PO DAILY tab 08/26/18 10/27/19 Cozaar 100 mg PO QDAY 06/25/19 10/27/19 Proventil Hfa 2 puff INH Q6 06/25/19 10/27/19 Temi-D 24 Hour Tablet 10/27/19 amLODIPine [Norvasc] 10 mg PO DAILY 10/27/19 10/27/19 fentaNYL [Duragesic] 50 mcg TOPICAL Q48 10/27/19 10/27/19 lamoTRIgine [Lamotrigine] 50 mg PO BID 10/27/19 10/27/19 Previous Rx's Medication Instructions Recorded Gabapentin [Neurontin] 400 mg PO TID #10 tab 06/27/19 HYDROmorphone [Dilaudid] 3 mg PO Q4HP PRN #10 tab 06/27/19 Carvedilol [Coreg] 25 mg PO BID #60 tab 06/28/19 Allergies/Adverse Reactions: Allergies Allergy/AdvReac Type Severity Reaction Status Date / Time methadone [Methadone] AdvReac Mild Vomiting Verified 06/27/19 12:48 promethazine [From Phenergan] AdvReac Mild Vomiting Verified 06/25/19 05:45 ziconotide [From Prialt] AdvReac Mild Other Verified 06/25/19 05:45 Review of Systems All systems ED: reviewed and negative except as stated. 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) Spinal stenosis (Chronic) Mixed hyperlipidemia (Chronic) Chronic kidney disease, stage III (moderate) (Chronic) Colonic polyp (Chronic) Sleep apnea (Chronic) Spasm of muscle (Chronic) Chronic lumbar radiculopathy (Chronic) Memory difficulty (Chronic) Depressive episode (Chronic) Constipation (Chronic) Difficulty in walking (Chronic) Weakness (Chronic) Numbness (Chronic) CKD (chronic kidney disease) (Chronic) Adenomatous colon polyp (Chronic) CHF (congestive heart failure) (Chronic) Fatty liver (Chronic) Opioid dependence (Chronic) Mitral valve prolapse (Chronic) Hyperlipidemia (Chronic) Depression (Chronic) GLENNA (obstructive sleep apnea) (Chronic) Migraine (Chronic) Anxiety (Chronic) Asthma (Chronic) Leg pain (Chronic) Back pain (Chronic) COPD exacerbation (Acute) Community acquired pneumonia (Acute) Diabetes (Acute) Chronic pain (Acute) Hypertension (Acute) Respiratory infection (Acute) Acute respiratory failure (Acute) Past Surgical History (Last Reviewed 08/26/18 @ 15:23 by Caio Lopes MD) History of appendectomy (Chronic) History of back surgery (Chronic) History of exploratory laparotomy (Chronic) History of surgery (Chronic) S/P ALISIA-BSO (Chronic) S/P insertion of spinal cord stimulator (Chronic) Family History (Last Reviewed 08/26/18 @ 15:23 by Caio Lopes MD) Brother Cancer - Social History smoking status: Current every day smoker Physical Exam Limitations: no limitations, altered mental status, physical limitation General appearance: alert, sleepy Head: atraumatic, normocephalic Eye: Present: normal appearance ENT: Present: normal exam Neck: Present: normal inspection Chest: Present: normal inspection Respiratory: Present: normal lung sounds bilaterally Cardiovascular: Present: regular rate, normal rhythm, normal heart sounds Abdominal: Present: soft. Absent: distention, tenderness Speech: Present: slurred, dysarthria Cranial nerves: facial palsy (VII): Abnormal Right Motor strength - LUE: 4/5 Motor strength - RUE: 4/5 Motor strength - LLE: 4/5 Motor strength - RLE: 4/5 Skin: Present: warm, dry Course Vital Signs Temperature 99.0 F 10/27/19 16:24 Pulse Rate 70 10/27/19 16:24 Respiratory Rate 18 10/27/19 16:24 Blood Pressure 160/72 10/27/19 16:24 Pulse Oximetry (%) 98 10/27/19 16:24 Temperature 99.0 F 10/27/19 16:24 Pulse Rate 67 10/27/19 20:30 Respiratory Rate 15 10/27/19 18:45 Blood Pressure 171/69 10/27/19 20:30 Pulse Oximetry (%) 95 10/27/19 20:30 Neuro Symptoms/Deficit - MDM Narrative Medical decision making narrative: CT scan did not show anything acute. Patient is too high creatinine to do a CTA. She has a TENS unit so cannot do MRI or MRA. I discussed the case with the hospitalist and she will be admitted to the hospitalist service here. Neurologist at [place] recommended just using low-dose aspirin and doing a carotid Doppler. - Lab Data Lab results reviewed: Yes I reviewed the patient's lab results. Result diagrams: 10/27/19 16:46 10/27/19 16:46 Lab Results 10/27/19 10/27/19 10/27/19 Range/Units 16:46 16:46 16:46 WBC 3.8 L (4.50-11.00) K/mcL RBC 2.60 L (3.59-5.38) M/mcL Hgb 7.9 L (11.2-15.7) g/dL Hct 25.4 L (34.1-44.9) % POC Hct 23.0 L (36.0-48.0) % MCV 97.7 (80.0-100.0) fL MCH 30.4 (26.0-34.0) pg MCHC 31.1 (31.0-36.0) g/dL RDW 14.6 H (11.5-14.5) % Plt Count 123 L (140-440) K/mcL MPV 10.8 H (7.4-10.4) fL Gran % 63.1 (38.0-78.0) % Lymph % (Auto) 26.5 (15.5-49.0) % [place] % (Auto) 8.0 (1.0-12.0) % Eos % (Auto) 2.1 (0.0-7.0) % Baso % (Auto) 0.3 (0.0-2.0) % Gran # 2.38 (1.80-8.00) K/mcL Lymph # (Auto) 1.00 L (1.50-4.80) K/mcL [place] # (Auto) 0.30 (0.10-0.90) K/mcL Eos # (Auto) 0.08 (0.00-0.70) K/mcL Baso # (Auto) 0.01 (0.00-0.30) K/mcL POC PT 13.2 (11.9-14.5) sec POC INR 1.1 (0.9-1.2) APTT 35 (20-37) sec POC Sodium 146 H (133-145) mmol/L Sodium 145 (133-145) mmol/L POC Potassium 4.0 (3.3-5.1) mmol/L Potassium 4.1 (3.3-5.1) mmol/L POC Chloride 105 (96-108) mmol/L Chloride 107 (96-108) mmol/L Carbon Dioxide 29 (22-30) mmol/L POC Total CO2 30 (22-30) mmol/L Anion Gap 9.0 (8-16) POC BUN 15 (8-23) mg/dl BUN 14 (8-23) mg/dl Creatinine 1.6 H (0.6-1.1) mg/dl POC Creatinine 1.8 H (0.6-1.1) mg/dl GFR Calculation 33 Glucose 168 H (70-105) mg/dL POC Glucose 160 H (70-105) mg/dL Calcium 8.7 (8.6-10.4) mg/dl POC WB Ioniz Calcium 1.17 (1.16-1.32) mmol/L Total Bilirubin 0.4 (0.0-1.0) mg/dL AST 60 H (0-37) U/l ALT 25 (0-40) U/l Alkaline Phosphatase 131 H (39-117) U/L Troponin T (0-0.03) ng/ml Total Protein 6.1 (5.9-8.4) gm/dL Albumin 3.3 (3.2-5.2) gm/dL Globulin 2.8 (2.2-3.7) gm/dL Albumin/Globulin Ratio 1.2 (1.0-2.3) Urine Color Urine Appearance Urine pH (5.0-9.0) Ur Specific [place] (1.000-1.035) Urine Protein (NEG) mg/dL Urine Glucose (UA) (NEG) mg/dL Urine Ketones (NEG) mg/dL Urine Occult Blood (<0.03) mg/dL Urine Nitrate (NEG) Urine Bilirubin (NEG) mg/dL Urine Urobilinogen (NEG) mg/dL Ur Leukocyte Esterase (NEG) /uL Urine RBC (0-1) /hpf Urine WBC (0-4) /hpf Ur Squamous Epith Cells (0-4) /hpf Ur Transition Epith Cell (0-2) /hpf Urine Bacteria (0) /hpf Hyaline Casts (0-2) /lpf Urine Mucus (0) /hpf Urine Yeast (Budding) (0) /hpf Ur Culture Indicated? Urine Opiates Screen (NONDETECTED) Ur Oxycodone Screen (NONDETECTED) Urine Methadone Screen (NONDETECTED) Ur Barbiturates Screen (NONDETECTED) Ur Phencyclidine Scrn (NONDETECTED) Ur Amphetamines Screen (NONDETECTED) U Benzodiazepines Scrn (NONDETECTED) Urine Cocaine Screen (NONDETECTED) U Marijuana (THC) Screen (NONDETECTED) 10/27/19 10/27/19 10/27/19 Range/Units 16:46 18:59 18:59 WBC (4.50-11.00) K/mcL RBC (3.59-5.38) M/mcL Hgb (11.2-15.7) g/dL Hct (34.1-44.9) % POC Hct (36.0-48.0) % MCV (80.0-100.0) fL MCH (26.0-34.0) pg MCHC (31.0-36.0) g/dL RDW (11.5-14.5) % Plt Count (140-440) K/mcL MPV (7.4-10.4) fL Gran % (38.0-78.0) % Lymph % (Auto) (15.5-49.0) % [place] % (Auto) (1.0-12.0) % Eos % (Auto) (0.0-7.0) % Baso % (Auto) (0.0-2.0) % Gran # (1.80-8.00) K/mcL Lymph # (Auto) (1.50-4.80) K/mcL [place] # (Auto) (0.10-0.90) K/mcL Eos # (Auto) (0.00-0.70) K/mcL Baso # (Auto) (0.00-0.30) K/mcL POC PT (11.9-14.5) sec POC INR (0.9-1.2) APTT (20-37) sec POC Sodium (133-145) mmol/L Sodium (133-145) mmol/L POC Potassium (3.3-5.1) mmol/L Potassium (3.3-5.1) mmol/L POC Chloride (96-108) mmol/L Chloride (96-108) mmol/L Carbon Dioxide (22-30) mmol/L POC Total CO2 (22-30) mmol/L Anion Gap (8-16) POC BUN (8-23) mg/dl BUN (8-23) mg/dl Creatinine (0.6-1.1) mg/dl POC Creatinine (0.6-1.1) mg/dl GFR Calculation Glucose (70-105) mg/dL POC Glucose (70-105) mg/dL Calcium (8.6-10.4) mg/dl POC WB Ioniz Calcium (1.16-1.32) mmol/L Total Bilirubin (0.0-1.0) mg/dL AST (0-37) U/l ALT (0-40) U/l Alkaline Phosphatase (39-117) U/L Troponin T < 0.01 (0-0.03) ng/ml Total Protein (5.9-8.4) gm/dL Albumin (3.2-5.2) gm/dL Globulin (2.2-3.7) gm/dL Albumin/Globulin Ratio (1.0-2.3) Urine Color Yellow Urine Appearance Clear Urine pH 6.0 (5.0-9.0) Ur Specific [place] 1.014 (1.000-1.035) Urine Protein 100 A (NEG) mg/dL Urine Glucose (UA) Negative (NEG) mg/dL Urine Ketones Neg (NEG) mg/dL Urine Occult Blood Neg (<0.03) mg/dL Urine Nitrate Neg (NEG) Urine Bilirubin Neg (NEG) mg/dL Urine Urobilinogen Neg (NEG) mg/dL Ur Leukocyte Esterase 25 A (NEG) /uL Urine RBC 2 H (0-1) /hpf Urine WBC 10 H (0-4) /hpf Ur Squamous Epith Cells < 1 (0-4) /hpf Ur Transition Epith Cell < 1 (0-2) /hpf Urine Bacteria 0 (0) /hpf Hyaline Casts 15 H (0-2) /lpf Urine Mucus Few (0) /hpf Urine Yeast (Budding) Few A (0) /hpf Ur Culture Indicated? Yes Urine Opiates Screen Suspect positive A (NONDETECTED) Ur Oxycodone Screen None detected (NONDETECTED) Urine Methadone Screen None detected (NONDETECTED) Ur Barbiturates Screen None detected (NONDETECTED) Ur Phencyclidine Scrn None detected (NONDETECTED) Ur Amphetamines Screen None detected (NONDETECTED) U Benzodiazepines Scrn None detected (NONDETECTED) Urine Cocaine Screen None detected (NONDETECTED) U Marijuana (THC) Screen None detected (NONDETECTED) - Radiology Data Radiology results reviewed: Yes I reviewed the patient's radiology results. Disposition Pt seen by FILM VAULT SUPERVISOR/PA only: No Clinical Impression: CVA (cerebral vascular accident) Disposition: Xfer As Inpt ([facility]) Condition: Good Referrals: Delicia Jones MD [Primary Care Provider] - Time of Disposition: 21:27
--- NOTE | 2019-10-27 16:46 | Cat Scan Report ---
History: Acute stroke with slurred speech and increased weakness, facial droop TECHNIQUE: The brain was imaged without contrast at 2.5 mm intervals. Radiation exposure was limited using dose reduction technology. FINDINGS: There is a 4 x 5 mm lacunar infarct with encephalomalacia in the anterior limb of the right internal capsule. This does not appear acute but was not present at the time of the prior head CT done on 06/24/19. No acute infarct is detected. There is no hemorrhage or mass effect. Patient has mild age-related degenerative changes with mild frontal and temporal lobe atrophy and subtle white matter disease in the centrum semiovale. The ventricles are normal in size. There is no abnormal extra-axial fluid collection. There is mild right-sided ethmoid and right sphenoid sinusitis. IMPRESSION: Subacute to old infarct in the right internal capsule No evidence of an acute infarct Dr. Howard was called with the results Interpreted and Authenticated by: Myke Donovan 10/27/19
[2019-10-27 16:57] LABS: POC INR 1.1 (0.9-1.2); POC Pro Time 13.2 sec (11.9-14.5)
[2019-10-27 16:59] LABS: POC Blood Urea Nitrogen 15 mg/dl (8-23); POC CO2 30 mmol/L (22-30); POC Calcium, Ionized 1.17 mmol/L (1.16-1.32); POC Chloride 105 mmol/L (96-108); POC Creatinine 1.8 mg/dl (0.6-1.1); POC Glucose, Random 160 mg/dL (70-105); POC Sodium 146 mmol/L (133-145)
[2019-10-27 17:26] LABS: Basophils # (Auto) 0.01 K/mcL (0.00-0.30); Basophils % (Auto) 0.3 % (0.0-2.0); Eosinophils # (Auto) 0.08 K/mcL (0.00-0.70); Eosinophils % (Auto) 2.1 % (0.0-7.0); Granulocytes % (Auto) 63.1 % (38.0-78.0); Hematocrit 25.4 % (34.1-44.9); Hemoglobin 7.9 g/dL (11.2-15.7); Lymphocytes % (Auto) 26.5 % (15.5-49.0); Mean Cell Volume 97.7 fL (80.0-100.0); Mean Corpuscular HGB Conc 31.1 g/dL (31.0-36.0); Mean Platelet Volume 10.8 fL (7.4-10.4); Platelet Count 123 K/mcL (140-440); Red Cell Distribution Width 14.6 % (11.5-14.5); WBC 3.8 K/mcL (4.50-11.00)
[2019-10-27 17:48] LABS: ALT/SGPT 25 U/l (0-40); AST/SGOT 60 U/l (0-37); Albumin 3.3 gm/dL (3.2-5.2); Albumin/Globulin Ratio 1.2 (1.0-2.3); Alkaline Phosphatase 131 U/L (39-117); Bilirubin,Total 0.4 mg/dL (0.0-1.0); Blood Urea Nitrogen 14 mg/dl (8-23); Calcium 8.7 mg/dl (8.6-10.4); Carbon Dioxide 29 mmol/L (22-30); Chloride 107 mmol/L (96-108); Globulin 2.8 gm/dL (2.2-3.7); Glomerular Filtration Rate 33; Glucose 168 mg/dL (70-105)
[2019-10-27 19:48] LABS: Appearance,Urine CLEAR; Bacteria,Urine 0 /hpf (0); Bilirubin,Urine NEG (NEG); Color,Urine YELLOW; Culture Indicated,Urine YES; Glucose,Urine (UA) NEGATIVE (NEG); Ketones,Urine NEG (NEG); Leukocyte Esterase,Urine 25 /uL (NEG); Mucus,Urine FEW /hpf (0); Nitrate,Urine NEG (NEG); Protein,Urine 100 mg/dL (NEG); Specific Gravity,Urine 1.014 (1.000-1.035); Urine Blood NEG mg/dL (<0.03); Urine Budding Yeast FEW /hpf (0); Urine Hyaline Cast 15 /lpf (0-2); Urine RBC 2 /hpf (0-1); Urine Squamous Epithelial Cell < 1 /hpf (0-4); Urine Transitional Epi Cells < 1 /hpf (0-2); Urine WBC 10 /hpf (0-4); Urobilinogen,Urine NEG (NEG)
--- NOTE | 2019-10-27 20:25 | Internal Med History&Physical ---
Medical - H&P: HPI Patient information: Note initiated : 10/27/19 at 8:23 pm Service Date, if different from initiated Date: [] Patient: Kathleen Avitia 69 y/o F admitted on for stroke symptoms. Chief Complaint: [] History of present illness: This is a 69-year-old female who was recently admitted to the hospital for an probable upper GI bleed and found out having probable portal gastropathy and she was discharged home. Patient has been weak since then and found how more weak and falling towards the left side with a left upper extremity weakness and right facial droop since yesterday. The symptom has been going on for at least 24- hour according to the did not improve and she continues to be leaning towards the left side and was brought to the ER. In the ER she appears to have strokelike symptoms with NIH score of 11. Patient is alert oriented answering questions and on examination she has obvious left motor weakness 3 x 5 and right facial droop she also has left lower extremity weakness but according to the . Patient previously had many spinal surgeries and always had some weakness on left lower extremity. Her creatinine is 1.9 in radiology could not do a CTA. She has a TENS unit and not a candidate for MRI according to the . Discussed with the ER physician and Dr. ho will get opinion from neurology and plan is to admit the patient for further evaluation with a CTA once her creatinine improved unless neurology has any recommendations - Constitutional Constitutional: Present: daytime sleepiness, fatigue, lethargy, malaise, snoring, stops breathing during sleep. Absent: chills, excessive sweating, frequent falls - EENT Eyes: Absent: decreased night vision, diplopia, discharge, dry eye, exophthalmos Nose, mouth and throat: Absent: abnormal hearing, bleeding gums, change in voice, dental pain - Cardiovascular Cardiovascular: Present: dyspnea on exertion. Absent: chest pain, chest pain at rest, chest pain with activity, edema, leg ulcers, lightheadedness, palpatations - Respiratory Respiratory: Present: snoring. Absent: cough, dyspnea, hemoptysis, dyspnea on exertion, wheezing - Gastrointestinal Gastrointestinal: Present: melena. Absent: cramping, dyspepsia, nausea, tenesmus, vomiting - Genitourinary Genitourinary: Absent: change in urinary stream, difficulty conceiving, d ifficulty urinating, difficulty voiding - Musculoskeletal Musculoskeletal: Present: back pain, muscle weakness - Neurological Neurological: Present: as per HPI, abnormal gait, disequilibrium, dizziness, focal weakness. Absent: abnormal hearing - Psychiatric Psychiatric: Absent: hallucinations, memory loss, mood swings, panic attacks, paranoia, visual hallucinations - Endocrine Endocrine: Present: fatigue. 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) Spinal stenosis (Chronic) Mixed hyperlipidemia (Chronic) Chronic kidney disease, stage III (moderate) (Chronic) Colonic polyp (Chronic) Sleep apnea (Chronic) Spasm of muscle (Chronic) Chronic lumbar radiculopathy (Chronic) Memory difficulty (Chronic) Depressive episode (Chronic) Constipation (Chronic) Difficulty in walking (Chronic) Weakness (Chronic) Numbness (Chronic) CKD (chronic kidney disease) (Chronic) Adenomatous colon polyp (Chronic) CHF (congestive heart failure) (Chronic) Fatty liver (Chronic) Opioid dependence (Chronic) Mitral valve prolapse (Chronic) Hyperlipidemia (Chronic) Depression (Chronic) GLENNA (obstructive sleep apnea) (Chronic) Migraine (Chronic) Anxiety (Chronic) Asthma (Chronic) Leg pain (Chronic) Back pain (Chronic) COPD exacerbation (Acute) Community acquired pneumonia (Acute) Diabetes (Acute) Chronic pain (Acute) Hypertension (Acute) Respiratory infection (Acute) Acute respiratory failure (Acute) Surgical history: Past Surgical History (Last Reviewed 08/26/18 @ 15:23 by Caio Lopes MD) History of appendectomy (Chronic) History of back surgery (Chronic) History of exploratory laparotomy (Chronic) History of surgery (Chronic) S/P ALISIA-BSO (Chronic) S/P insertion of spinal cord stimulator (Chronic) Family history: reviewed and not pertinent Social history: Social History (Last Updated 08/26/18 @ 15:38 by Caio Lopes MD) No Social History Section defined Drug use: none Alcohol use: none Medical - H&P: Meds Home Medications Medication Instructions Recorded Confirmed Type Aspirin [Hetal Chewable Aspirin] 81 mg PO DAILY 10/28/15 06/25/19 History Atorvastatin [Lipitor] 20 mg PO HS 10/28/15 06/25/19 History Fenofibrate Nanocrystallized 145 mg PO DAILY 10/28/15 06/25/19 History [Tricor] Furosemide [Lasix] 20 mg PO DAILY 10/28/15 06/25/19 History Rizatriptan Benzoate [Maxalt] 10 mg PO DAILY 10/28/15 06/25/19 History amLODIPine [Norvasc] 10 mg PO DAILY 10/28/15 06/25/19 History Methocarbamol [Robaxin] 750 mg PO Q6HP PRN 10/29/15 06/25/19 History Niacin (Inositol Niacinate) 500 mg PO HS 10/29/15 06/25/19 History [Niacin 500 mg Capsule] Sennosides/Docusate Sodium 3 tab PO DAILY 10/29/15 06/25/19 History [Senna-Docusate Sodium Tablet] Docusate Sodium [Colace] 200 mg PO QDAY 03/12/17 06/25/19 History Ergocalciferol (Vitamin D2) 50,000 unit PO WEEKLY 03/12/17 06/25/19 History [Vitamin D2] Triamcinolone Acetonide [Nasacort] 2 spray INTRANASAL DAILY 03/12/17 06/25/19 History Albuterol Sulfate [Ventolin] 2 puff INH Q4-6HP PRN 03/23/18 06/25/19 History fexofenadine 60 mg tablet 60 mg PO BID 08/26/18 06/25/19 History hydrochlorothiazide 12.5 mg tablet 12.5 mg PO QDAY 08/26/18 06/25/19 History lorazepam 1 mg tablet 2 mg PO BID PRN tab 08/26/18 06/25/19 History prochlorperazine maleate 10 mg 10 mg PO Q4HP PRN tab 08/26/18 06/25/19 History tablet sertraline 100 mg tablet 100 mg PO DAILY tab 08/26/18 06/25/19 History Cozaar 100 mg PO QDAY 06/25/19 06/25/19 History Proventil Hfa 2 puff INH Q6 06/25/19 06/25/19 History Gabapentin [Neurontin] 400 mg PO TID #10 tab 06/27/19 Rx HYDROmorphone [Dilaudid] 3 mg PO Q4HP PRN #10 tab 06/27/19 Rx fentaNYL [Duragesic] 25 mcg TOPICAL Q72H #4 patch 06/27/19 Rx metroNIDAZOLE [Flagyl] 500 mg PO Q8 #27 tab 06/27/19 Rx Carvedilol [Coreg] 25 mg PO BID #60 tab 06/28/19 Rx Allergies Allergy/AdvReac Type Severity Reaction Status Date / Time methadone [Methadone] AdvReac Mild Vomiting Verified 06/27/19 12:48 promethazine [From Phenergan] AdvReac Mild Vomiting Verified 06/25/19 05:45 ziconotide [From Prialt] AdvReac Mild Other Verified 06/25/19 05:45 Medical - H&P: Exam - Constitutional Vitals: Temp Pulse Resp BP Pulse Ox 99.0 F 71 15 173/65 96 10/27/19 16:24 10/27/19 20:16 10/27/19 18:45 10/27/19 20:16 10/27/19 20:16 General appearance: cooperative, mild distress, morbidly obese - Head Head exam: Present: atraumatic, normal inspection, normocephalic - Expanded Head Exam Head exam: Absent: abrasion, hematoma, laceration - Eye Eye exam: Present: normal appearance, PERRL. Absent: conjunctival injection, nystagmus Pupils: Present: PERRL - ENT ENT exam: Present: mucous membranes dry, normal exam, normal external ear exam, normal oropharynx - Expanded ENT Exam Ear exam: Absent: auricular hematoma, auricular trauma, external canal tenderness Nose & sinuses exam: Present: external nose, grossly normal Mouth exam: Present: normal external inspection. Absent: drooling, laceration, muffled voice Teeth exam: Present: dental caries. Absent: gingival enlargement Throat exam: Present: normal inspection. Absent: post pharyngeal erythema, tonsillar erythema - Neck Neck exam: Present: normal inspection. Absent: lymphadenopathy, meningismus - Respiratory Respiratory exam: Present: decreased breath sounds. Absent: accessory muscle use, respiratory distress, rhonchi, wheezes - Cardiovascular Cardiovascular exam: Present: normal rate and rhythm, diastolic murmur, systolic murmur - GI/Abdominal GI/Abdominal exam: Present: normal bowel sounds, soft, distended. Absent: tenderness - Expanded GI/Abdominal Exam GI/Abdominal exam: Absent: ascites - Back Exam Back exam: Present: tenderness. Absent: CVA tenderness (L), CVA tenderness (R) - Neurological Exam Neurological exam: Present: alert, oriented X3, reflexes normal - Expanded Neurological Exam Neurological exam expanded: Absent: expressive aphasia, memory loss-recent event, memory loss-remote event Patient oriented to: Present: person, place, time Speech: Present: slurred Ataxia: Present: yes Upper motor neuron: Babinski sign: Normal Neuro motor strength exam: LUE: 3, RUE: 5, LLE: 3, RLE: 5 DTR: achilles tendon (L): 2+, achilles tendon (R): 2+, patellar (L): 2+, patellar (R): 2+ Coma Scale Eye Opening: Spontaneous Coma Scale Motor Response: Obeys Commands Coma Scale Verbal Response: Oriented Coma Scale Total: 15 - Psychiatric Psychiatric exam: Present: flat affect. Absent: anxious, depressed - Skin Skin exam: Absent: abrasion, cyanosis, diaphoretic, erythema Medical - H&P: Reslt - Labs CBC & Chem 7: 10/27/19 16:46 10/27/19 16:46 Labs: Short CBC 10/27/19 Range/Units 16:46 WBC 3.8 L (4.50-11.00) K/mcL Hgb 7.9 L (11.2-15.7) g/dL Hct 25.4 L (34.1-44.9) % Plt Count 123 L (140-440) K/mcL BMP 10/27/19 16:46 Sodium 145 Potassium 4.1 Chloride 107 Carbon Dioxide 29 BUN 14 Creatinine 1.6 H Glucose 168 H Calcium 8.7 Cardiac Enzymes 10/27/19 Range/Units 16:46 Troponin T < 0.01 (0-0.03) ng/ml Liver Function 10/27/19 Range/Units 16:46 Total Bilirubin 0.4 (0.0-1.0) mg/dL AST 60 H (0-37) U/l ALT 25 (0-40) U/l Alkaline Phosphatase 131 H (39-117) U/L Albumin 3.3 (3.2-5.2) gm/dL Urine 10/27/19 Range/Units 18:59 Urine Color Yellow Urine Appearance Clear Urine pH 6.0 (5.0-9.0) Ur Specific [place] 1.014 (1.000-1.035) Urine Protein 100 A (NEG) mg/dL Urine Glucose (UA) Negative (NEG) mg/dL Medical - H&P: A/P - Narrative A/P Narrative: Probable acute stroke Onset of left upper extremity weakness and right facial droop-more than 24 hours since time of onset Recent history of upper GI bleed active underwent EGD showing probable portal gastropathy and underlying cirrhosis Not a candidate for TPA due to timeframe and recent GI bleed Unable to perform CTA due to acute renal failure Not a candidate for MRI shas she have tens units and according to the she is not a candidate for MRI per previous recommendations Plan ER physician discussing with the neurology for recommendations Discussed with the patient and about antiplatelet agents and decided we will hold any antiplatelets for now as she recently had GI bleed and will consider starting in a week time. Physical therapy evaluation We will recheck her renal panel tomorrow and if once it is improved we will obtain a CTA echo ordered telemetry CTA once her ARF improves Acute renal failure Probably due to recent GI bleed and dehydration Patient has history of CKD stage III now worsening creatinine for the last few days Creatinine was 1.9 same number during the last admission for GI bleed a week ago Rehydration with IV fluid Accelerated hypertension Probably due to stroke Will allow permissive hypertension Restart her home medications accordingly probably tomorrow Hydralazine for systolic blood pressure more than 200 History of chronic back pain and narcotic dependence Patient had multiple narcotics and polypharmacy with the previous admissions for confusion We will hold some of her narcotics and adjust the dosing We will keep some minimal dose to avoid any withdrawal Morbid obesity and hypercapnia Patient had previous hypercapnic confusion Morbid obesity and sleep apnea We will order CPAP at night DVT prophylaxis-SCDs and avoid any heparin products due to recent GI bleed CODE STATUS-full code according to the Expected length of stay of at least 2 midnights CPT code 50475
[2019-10-27 21:02] LABS: Amphetamine Screen,Urine NONE DETECTED (NONDETECTED); Barbiturate Screen,Urine NONE DETECTED (NONDETECTED); Benzodiazepines Screen,Urine NONE DETECTED (NONDETECTED); Cannabinoid Screen,Urine NONE DETECTED (NONDETECTED); Cocaine Screen,Urine NONE DETECTED (NONDETECTED); Opiate Screen,Urine SUSPECT POSITIVE (NONDETECTED); Oxycodone, Urine Screen NONE DETECTED (NONDETECTED); Phencyclidine Screen,Urine NONE DETECTED (NONDETECTED)
[2019-10-27 22:01] LABS: Alcohol, Blood < 10.0 mg/dL (<10); Alcohol,Blood < 0.010 gm/dl (<0.010)
[2019-10-27] MEDS ORDERED: ONDANSETRON 4 MG/2 ML VIAL IV PRN (22:39)
[2019-10-27] MEDS ORDERED: DEXTROSE 31 GM ORAL.SUSP PO PRN (22:39)
[2019-10-27] MEDS ORDERED: ALBUTEROL SULFATE 2.5 MG/3 ML NEBULIZER NEB PRN (22:39)
[2019-10-27] MEDS ORDERED: ACETAMINOPHEN 325 MG TABLET PO PRN (22:39)
[2019-10-27] MEDS ORDERED: oxyCODONE HCL 5 MG TABLET PO PRN (22:39)
[2019-10-27] MEDS ORDERED: DEXTROSE 50% 50 ML VIAL IV PRN (22:39)
[2019-10-27] MEDS ORDERED: HYDROmorphone 2 MG/ML VIAL IV SCH (22:45)
[2019-10-27] MEDS ORDERED: 0.9 % SODIUM CHLORIDE 1,000 ML IV SCH (22:45)
[2019-10-28] MEDS ORDERED: oxyCODONE HCL 5 MG TABLET PO PRN (00:49)
[2019-10-28] MEDS ORDERED: ALBUTEROL SULFATE 2.5 MG/3 ML NEBULIZER NEB PRN (00:49)
[2019-10-28] MEDS ORDERED: hydrALAZINE 20 MG/ML VIAL IV PRN (00:49)
[2019-10-28] MEDS ORDERED: HYDROmorphone 2 MG/ML VIAL IV SCH (00:49)
[2019-10-28] MEDS ORDERED: DEXTROSE 50% 50 ML VIAL IV PRN (00:49)
[2019-10-28] MEDS ORDERED: ACETAMINOPHEN 325 MG TABLET PO PRN (00:49)
[2019-10-28] MEDS ORDERED: DEXTROSE 31 GM ORAL.SUSP PO PRN (00:49)
[2019-10-28] MEDS: 0.9 % SODIUM CHLORIDE 1,000 ML IV SCH ×2 (01:38→16:16)
[2019-10-28] MEDS ORDERED: HYDROmorphone 2 MG/ML VIAL ONE (02:18)
[2019-10-28] MEDS: 0.9 % SODIUM CHLORIDE 10 ML SYRINGE IV SCH ×3 (05:52→20:17)
[2019-10-28 05:53] LABS: Basophils # (Auto) 0.02 K/mcL (0.00-0.30); Basophils % (Auto) 0.6 % (0.0-2.0); Eosinophils % (Auto) 2.8 % (0.0-7.0); Granulocytes % (Auto) 52.2 % (38.0-78.0); Hematocrit 23.7 % (34.1-44.9); Hemoglobin 7.1 g/dL (11.2-15.7); Lymphocytes # (Auto) 1.29 K/mcL (1.50-4.80); Lymphocytes % (Auto) 35.8 % (15.5-49.0); Mean Cell Volume 97.5 fL (80.0-100.0); Mean Platelet Volume 10.9 fL (7.4-10.4); Monocytes # (Auto) 0.31 K/mcL (0.10-0.90); Monocytes % (Auto) 8.6 % (1.0-12.0); RBC 2.43 M/mcL (3.59-5.38); Red Cell Distribution Width 14.4 % (11.5-14.5); WBC 3.6 K/mcL (4.50-11.00)
[2019-10-28] MEDS ORDERED: 0.9 % SODIUM CHLORIDE 10 ML SYRINGE IV SCH (06:00)
[2019-10-28 06:01] LABS: Platelet Count 102 K/mcL (140-440)
[2019-10-28 06:49] LABS: ALT/SGPT 20 U/l (0-40); AST/SGOT 53 U/l (0-37); Albumin 3.1 gm/dL (3.2-5.2); Albumin/Globulin Ratio 1.2 (1.0-2.3); Alkaline Phosphatase 102 U/L (39-117); Bilirubin,Total 0.3 mg/dL (0.0-1.0); Blood Urea Nitrogen 13 mg/dl (8-23); Calcium 8.6 mg/dl (8.6-10.4); Carbon Dioxide 29 mmol/L (22-30); Globulin 2.5 gm/dL (2.2-3.7); Glomerular Filtration Rate 39; Glucose 96 mg/dL (70-105); HDL Cholesterol 32 mg/dl (>40); LDL Cholesterol,Calculated 66 mg/dl (SEE CHART); Non-HDL Cholesterol 92 (LDL TARGET+30); Triglycerides 135 mg/dl (<150)
[2019-10-28 06:52] LABS: Chloride 110 mmol/L (96-108)
[2019-10-28] MEDS ORDERED: INSULIN LISPRO 1 UNIT/0.01 ML UNIT SQ SCH (07:30)
[2019-10-28] MEDS: DOCUSATE SODIUM 100 MG CAPSULE PO SCH ×2 (08:28→20:06)
[2019-10-28] MEDS: INSULIN LISPRO 1 UNIT/0.01 ML UNIT SQ SCH ×4 (08:28→20:24)
[2019-10-28] MEDS: FAMOTIDINE/PF 20 MG/2 ML VIAL IV SCH ×2 (08:29→20:17)
[2019-10-28] MEDS: ASPIRIN 81 MG TAB.CHEW CHEWED SCH (08:29)
[2019-10-28] MEDS ORDERED: ASPIRIN 81 MG TAB.CHEW CHEWED SCH (09:00)
[2019-10-28] MEDS ORDERED: DOCUSATE SODIUM 100 MG CAPSULE PO SCH (09:00)
[2019-10-28] MEDS ORDERED: FAMOTIDINE/PF 20 MG/2 ML VIAL IV SCH (09:00)
[2019-10-28] MEDS ORDERED: IOPAMIDOL 100 ML BOTTLE IV ONE (12:06)
--- NOTE | 2019-10-28 12:37 | Cat Scan Report ---
History: Stroke weakness, slurred speech and facial droop TECHNIQUE: Following injection of 70 cc of Isovue-370 contrast, the patient was scanned during arterial phase from the aortic arch to the top of the head. The head and neck were imaged separately. Sagittal and coronal reformats were created of the head and neck separately. MIPS images were created. The radiation exposure was limited using dose reduction technology. FINDINGS: The aortic arch and great vessels arising the aorta are normal caliber. There is some plaque formation in the midportion of the arch. There is also a nonstenotic plaque at the bifurcation of the innominate artery into the right subclavian and common carotid. The common carotids and internal carotids are very tortuous. They deviate posterior to the pharynx. The tortuosity is causing a kink in the proximal portion of the right internal carotid. There is a small eccentric plaque in the proximal portion of the left internal carotid. No hemodynamically significant stenosis is present in the carotid center is no thrombosis or dissection. The vertebral arteries are patent. The left is dominant. There is no plaque formation or thrombosis of the vertebrals. Head: There is normal intracranial arterial circulation. There is no evidence of stenosis, thrombosis or vascular malformation. Anterior communicating artery is patent. Posterior communicating arteries are absent or hypoplastic. Small amount of plaque is seen in the cavernous portions of both internal carotids. These are not causing stenosis. There is no aneurysm. No enhancing lesion is present. IMPRESSION: Normal arterial circulation in the head and neck Tortuous common and internal carotids resulting in a kink in the proximal right internal carotid. Mild atherosclerotic disease Interpreted and Authenticated by: Myke Donovan 10/28/19
[2019-10-28] MEDS: oxyCODONE HCL 5 MG TABLET PO PRN ×3 (13:20→21:48)
[2019-10-28] MEDS: ONDANSETRON 4 MG/2 ML VIAL IV PRN (16:14)
[2019-10-28] MEDS: ACETAMINOPHEN 1,000 MG/100 ML BOTTLE IV SCH (17:10)
[2019-10-28] MEDS: SODIUM CHLORIDE NASAL 1 SPRAY BOTTLE NAS PRN (18:12)
[2019-10-28] MEDS: SENNOSIDES 1 TABLET PO SCH (20:06)
[2019-10-28] MEDS ORDERED: METOCLOPRAMIDE 10 MG/2 ML VIAL IV PRN (21:00)
[2019-10-28] MEDS ORDERED: SENNOSIDES 1 TABLET PO SCH (21:00)
[2019-10-28] MEDS ORDERED: METOCLOPRAMIDE 10 MG/2 ML VIAL ONE (21:02)
--- NOTE | 2019-10-28 23:01 | Internal Med Progress Note ---
Medical - PN: Subj Patient information: Note initiated : 10/28/19 at 10:59 pm Service Date, if different from initiated Date: [] Patient: Kathleen Avitia 69 y/o F admitted on 10/28/19 for stroke symptoms. Chief Complaint: [] Interval history: 69-year-old female who was recently admitted to the hospital for an probable upper GI bleed and found out having probable portal gastropathy and she was discharged home. Patient has been weak since then and found how more weak and falling towards the left side with a left upper extremity weakness and right facial droop since yesterday. The symptom has been going on for at least 24- hour according to the did not improve and she continues to be leaning towards the left side and was brought to the ER. In the ER she appears to have strokelike symptoms with NIH score of 11. Patient is alert oriented answering questions and on examination she has obvious left motor weakness 3 x 5 and right facial droop she also has left lower extremity weakness but according to the . Patient previously had many spinal surgeries and always had some weakn ess on left lower extremity. Her creatinine is 1.9 in radiology could not do a CTA. She has a TENS unit and not a candidate for MRI according to the . Discussed with the ER physician and Dr. ho will get opinion from neurology and plan is to admit the patient for further evaluation with a CTA once her creatinine improved unless neurology has any recommendations 10/28 Patient was very anxious and crying as we discussed about withdrawing her narcotics and cutting back on her narcotic dependence and addiction. I discussed with the and he would like to cut back on the narcotics and since she is in the hospital this is the best time to do this. Patient expecting withdrawal symptoms and will try to use oxycodone as needed. Will use IV Tylenol. Ordered a CTA which was unremarkable for occlusive disease Echocardiogram unremarkable Pertinent ROS: Respiratory-denies any shortness of breath or chest discomfort Cardiovascular denied any chest pain palpitations Musculoskeletal-complaining of back pain and body pain Abdominal-denied any diarrhea constipation Neuro-continued having motor weakness left upper extremity left lower extremity - Constitutional Vitals: Vital Signs Temp Pulse Resp BP Pulse Ox 97.6 F 78 18 176/62 95 10/28/19 20:01 10/28/19 14:00 10/28/19 18:01 10/28/19 21:17 10/28/19 21:17 Period Temp Pulse Resp BP Sys/Connolly Pulse Ox Last 24 Hr 97.2 F-98.6 F 66-78 12-34 148-192/61-87 90-100 Intake and Output 10/28/19 10/28/19 10/29/19 13:59 21:59 05:59 Intake Total 1100 Output Total 875 775 Balance -875 325 Intake & Output: Intake & Output 10/28/19 10/28/19 10/29/19 13:59 21:59 05:59 Intake Total 1100 Output Total 875 775 Balance -875 325 Intake: IV 1100 Sodium Chloride 0.9% 1,000 ml @ 1000 75 mls/hr IV .[id number] [facility] Rx#: [id number] Output: Void Amount 250 550 Urine/Stool Mix 625 225 Other: Urine Appearance Clear Clear Urine Color Bright Yellow Bright Yellow Stool Size Moderate Small Stool Color Brown Brown Stool Consistency Soft Soft Liquid # Bowel Movements 1 - Head Head exam: Present: atraumatic Additional comments: Right facial drooping improved but still having deficit - Eye Eye exam: Absent: conjunctival injection, normal appearance Pupils: Absent: miosis - ENT ENT exam: Present: mucous membranes moist, normal external ear exam, normal oropharynx - Neck Neck exam: Present: normal inspection. Absent: lymphadenopathy, meningismus - Respiratory Respiratory exam: Present: normal respiratory exam. Absent: accessory muscle use, chest wall tenderness, decreased breath sounds - Cardiovascular Cardiovascular exam: Present: normal rate and rhythm. Absent: bradycardia, diastolic murmur - GI/Abdominal GI/Abdominal exam: Present: normal bowel sounds, soft, distended - Neurological Exam Additional comments: Left upper extremity motor weakness improved 4 x 5 Left lower extremity 4 x 5 Right facial drooping improved NIH score around 7 Reflexes intact Patient able to follow commands Higher mental functions intact - Psychiatric Psychiatric exam: Present: anxious, depressed - Skin Skin exam: Present: normal color. Absent: diaphoretic, erythema Medical - PN: Obj Da - Labs CBC & Chem 7: 10/28/19 05:00 10/28/19 05:00 Labs: Abnormal Lab Results 10/28/19 10/28/19 10/27/19 05:00 05:00 20:48 WBC 3.6 L RBC 2.43 L Hgb 7.1 L Hct 23.7 L POC Hct MCHC 30.0 L RDW Plt Count 102 L MPV 10.9 H Lymph # (Auto) 1.29 L POC Sodium Sodium 148 H Chloride 110 H Creatinine 1.4 H POC Creatinine Glucose POC Glucose AST 53 H Alkaline Phosphatase Ammonia 76 H Total Protein 5.6 L Albumin 3.1 L HDL Cholesterol 32 L Urine Protein Ur Leukocyte Esterase Urine RBC Urine WBC Hyaline Casts Urine Yeast (Budding) Urine Opiates Screen 10/27/19 10/27/19 10/27/19 18:59 18:59 16:46 WBC RBC Hgb Hct POC Hct 23.0 L MCHC RDW Plt Count MPV Lymph # (Auto) POC Sodium 146 H Sodium Chloride Creatinine 1.6 H POC Creatinine 1.8 H Glucose 168 H POC Glucose 160 H AST 60 H Alkaline Phosphatase 131 H Ammonia Total Protein Albumin HDL Cholesterol Urine Protein 100 A Ur Leukocyte Esterase 25 A Urine RBC 2 H Urine WBC 10 H Hyaline Casts 15 H Urine Yeast (Budding) Few A Urine Opiates Screen Suspect positive A 10/27/19 16:46 WBC 3.8 L RBC 2.60 L Hgb 7.9 L Hct 25.4 L POC Hct MCHC RDW 14.6 H Plt Count 123 L MPV 10.8 H Lymph # (Auto) 1.00 L POC Sodium Sodium Chloride Creatinine POC Creatinine Glucose POC Glucose AST Alkaline Phosphatase Ammonia Total Protein Albumin HDL Cholesterol Urine Protein Ur Leukocyte Esterase Urine RBC Urine WBC Hyaline Casts Urine Yeast (Budding) Urine Opiates Screen Meds: Medications Albuterol Sulfate (Ventolin) 2.5 mg NEB Q2HP PRN PRN Reason: Shortness Of Breath Aspirin (Aspirin) 81 mg CHEWED DAILY [facility] Last Admin: 10/28/19 08:29 Dose: 81 mg Documented by: Dextrose (Dextrose 50%) 0 ml IV UD PRN PRN Reason: Hypoglycemia Diagnostic Test (Pha) (Accu-Chek) 1 each FS ACHS [facility] Last Admin: 10/28/19 20:24 Dose: 1 each Documented by: Docusate Sodium (Colace) 100 mg PO BID [facility] Last Admin: 10/28/19 20:06 Dose: Not Given Documented by: Famotidine (Pepcid) 20 mg IV Q12 [facility] Last Admin: 10/28/19 20:17 Dose: 20 mg Documented by: Glucose (Insta-Glucose) 15 gm PO PRN PRN PRN Reason: Hypoglycemia Hydralazine HCl (Apresoline) 10 mg IV Q4-6HP PRN PRN Reason: Hypertension Last Admin: 10/28/19 17:09 Dose: 10 mg Documented by: Sodium Chloride (Sodium Chloride 0.9%) 1,000 mls @ 75 mls/hr IV .[id number] [facility] Last Admin: 10/28/19 16:16 Dose: 75 mls/hr Documented by: Acetaminophen (Ofirmev) 1,000 mg in 100 mls @ 200 mls/hr IV Q8H [facility]; Protocol Last Infusion: 10/28/19 18:00 Dose: Infused Documented by: Insulin Human Lispro (Humalog) 0 unit SQ ACHS [facility]; Protocol Last Admin: 10/28/19 20:24 Dose: Not Given Documented by: Metoclopramide HCl (Reglan) 5 mg IV Q6HP PRN PRN Reason: nausea Ondansetron HCl (Zofran) 4 mg IV Q6HP PRN PRN Reason: Nausea And Vomiting Last Admin: 10/28/19 16:14 Dose: 4 mg Documented by: Oxycodone HCl (Roxicodone) 5 mg PO Q4HP PRN; Protocol PRN Reason: Per Pain Protocol Last Admin: 10/28/19 21:48 Dose: 5 mg Documented by: Senna (Senokot) 2 tab PO HS [facility] Last Admin: 10/28/19 20:06 Dose: Not Given Documented by: Sodium Chloride (Saline Flush) 10 ml IV Q8 [facility] Last Admin: 10/28/19 20:17 Dose: 10 ml Documented by: Sodium Chloride ([place] Nasal) 2 spray ADILENE Q4HP PRN PRN Reason: Congestion Last Admin: 10/28/19 18:12 Dose: 2 spray Documented by: Medical - PN: A/P - Time Spent With Patient Total time spent is greater than 50% in coordination of care (as documented) at patient's floor/unit and/or counseling patient: - Narrative A/P Narrative: Probable acute stroke Based on CT scan and clinical examination Onset of left upper extremity weakness and right facial droop-more than 24 hours since time of onset Recent history of upper GI bleed active underwent EGD showing probable portal gastropathy and underlying cirrhosis. Not a candidate for TPA due to timeframe a nd recent GI bleed Not a candidate for MRI shas she have tens units and according to the she is not a candidate for MRI per previous recommendations ER physician discussed with neurology and recommended starting aspirin with a more close monitoring of hemoglobin due to the recent GI bleed Also recommended getting a CTA/carotid ultrasound based on the renal function in the morning We will start her on aspirin 81 mg Patient continued having motor deficit , needs to be evaluated for inpatient rehab Echocardiogram unremarkable for evidence of any clot, ejection fraction 55 to 60% no major wall motion abnormalities no significant valvular lesions Telemetry unremarkable CTA of the head and neck was unremarkable for any occlusive disease Acute renal failure-improved Probably due to recent GI bleed and dehydration Creatinine 1.4 Continued IV fluid and will stop tomorrow when she able to eat and drink Narcotic addiction and potential withdrawal Patient is addicted to narcotics and she takes Dilaudid 4 mg every 4 hour Educated patient and and and patient recommended trying to wean her off of the narcotics. Patient expressed anxiety and sadness and she was crying in the room when we discussed about narcotics withdrawal. We will try to use p.o. oxycodone judicio usly and use IV Tylenol Educated nursing staff and the team about the potential withdrawal Accelerated hypertension-improving Probably due to stroke Will allow permissive hypertension Restart her home medications accordingly probably tomorrow Hydralazine for systolic blood pressure more than 200 Blood loss anemia Patient had a recent acute blood loss anemia Hemoglobin is around 8 and will consider blood transfusion tomorrow as she was started on aspirin and risk of bleeding Morbid obesity and hypercapnia Patient had previous hypercapnic confusion Morbid obesity and sleep apnea DVT prophylaxis-SCDs and avoid any heparin products due to recent GI bleed CODE STATUS-full code according to the Expected length of stay of at least 2 midnights Medical - PN: Qual - Stroke Onset of Symptoms Date: 10/26/19 Symptom Onset Unknown: No - VTE Deep Vein Thrombosis/Pulmonary Embolism Present on Admission: No
[2019-10-29] MEDS: oxyCODONE HCL 5 MG TABLET PO PRN ×3 (02:04→11:02)
[2019-10-29] MEDS: ACETAMINOPHEN 1,000 MG/100 ML BOTTLE IV SCH ×2 (02:18→09:48)
[2019-10-29] MEDS: 0.9 % SODIUM CHLORIDE 1,000 ML IV SCH (05:31)
[2019-10-29] MEDS: 0.9 % SODIUM CHLORIDE 10 ML SYRINGE IV SCH ×3 (05:32→20:13)
[2019-10-29] MEDS: SODIUM CHLORIDE NASAL 1 SPRAY BOTTLE NAS PRN (06:39)
[2019-10-29] MEDS: METOCLOPRAMIDE 10 MG/2 ML VIAL IV PRN ×3 (06:39→19:27)
[2019-10-29] MEDS: ONDANSETRON 4 MG/2 ML VIAL IV PRN (06:40)
[2019-10-29] MEDS: INSULIN LISPRO 1 UNIT/0.01 ML UNIT SQ SCH ×4 (07:05→23:46)
[2019-10-29] MEDS: DOCUSATE SODIUM 100 MG CAPSULE PO SCH ×2 (07:06→19:46)
[2019-10-29] MEDS: FAMOTIDINE/PF 20 MG/2 ML VIAL IV SCH ×2 (07:06→20:11)
[2019-10-29] MEDS: ASPIRIN 81 MG TAB.CHEW CHEWED SCH (07:06)
[2019-10-29 07:09] LABS: Basophils # (Auto) 0.02 K/mcL (0.00-0.30); Basophils % (Auto) 0.4 % (0.0-2.0); Eosinophils # (Auto) 0.04 K/mcL (0.00-0.70); Eosinophils % (Auto) 0.8 % (0.0-7.0); Granulocytes % (Auto) 71.6 % (38.0-78.0); Hematocrit 24.6 % (34.1-44.9); Hemoglobin 7.6 g/dL (11.2-15.7); Lymphocytes # (Auto) 1.02 K/mcL (1.50-4.80); Mean Corpuscular HGB Conc 30.9 g/dL (31.0-36.0); Mean Platelet Volume 10.8 fL (7.4-10.4); Monocytes % (Auto) 6.2 % (1.0-12.0); Platelet Count 125 K/mcL (140-440); RBC 2.59 M/mcL (3.59-5.38); Red Cell Distribution Width 14.5 % (11.5-14.5); WBC 4.9 K/mcL (4.50-11.00)
[2019-10-29 07:15] LABS: ALT/SGPT 17 U/l (0-40); AST/SGOT 56 U/l (0-37); Albumin 3.1 gm/dL (3.2-5.2); Albumin/Globulin Ratio 1.1 (1.0-2.3); Alkaline Phosphatase 96 U/L (39-117); Bilirubin,Total 0.6 mg/dL (0.0-1.0); Blood Urea Nitrogen 14 mg/dl (8-23); Calcium 8.9 mg/dl (8.6-10.4); Carbon Dioxide 25 mmol/L (22-30); Chloride 107 mmol/L (96-108); Globulin 2.8 gm/dL (2.2-3.7); Glucose 104 mg/dL (70-105)
[2019-10-29 07:23] LABS: Glomerular Filtration Rate 30
[2019-10-29] MEDS ORDERED: METHOCARBAMOL 500 MG TABLET PO PRN (11:49)
[2019-10-29] MEDS ORDERED: 0.9 % SODIUM CHLORIDE 250 ML IV SCH (12:15)
[2019-10-29] MEDS: HYDROmorphone 2 MG TABLET PO PRN ×3 (12:21→20:14)
--- NOTE | 2019-10-29 13:57 | Internal Med Progress Note ---
Medical - PN: Subj Patient information: Note initiated : 10/29/19 at 1:55 pm Service Date, if different from initiated Date: [] Patient: Kathleen Avitia 69 y/o F admitted on 10/28/19 for stroke symptoms. Chief Complaint: [] Interval history: 69-year-old female who was recently admitted to the hospital for an probable upper GI bleed and found out having probable portal gastropathy and she was discharged home. Patient has been weak since then and found how more weak and falling towards the left side with a left upper extremity weakness and right facial droop since yesterday. The symptom has been going on for at least 24- hour according to the did not improve and she continues to be leaning towards the left side and was brought to the ER. In the ER she appears to have strokelike symptoms with NIH score of 11. Patient is alert oriented answering questions and on examination she has obvious left motor weakness 3 x 5 and right facial droop she also has left lower extremity weakness but according to the . Patient previously had many spinal surgeries and always had some weakness on left lower extremity. Her creatinine is 1.9 in radiology could not do a CTA. She has a TENS unit and not a candidate for MRI according to the . Discussed with the ER physician and Dr. ho will get opinion from neurology and plan is to admit the patient for further evaluation with a CTA once her creatinine improved unless neurology has any recommendations 10/28 Patient was very anxious and crying as we discussed about withdrawing her narcotics and cutting back on her narcotic dependence and addiction. I discussed with the and he would like to cut back on the narcotics and since she is in the hospital this is the best time to do this. Patient expecting withdrawal symptoms and will try to use oxycodone as needed. Will use IV Tylenol. Ordered a CTA which was unremarkable for occlusive disease Echocardiogram unremarkable 10/29 Patient strength improved she is 5 x 4 left upper extremity, 4 x 5 left lower extremity her facial droop improved Physical therapy working with her if she continues to progress probably she will be able to go home with outpatient PT or home health PT Extensive discussion with the family about the narcotic addiction and family wants to put her back on the home dose of narcotics I also spoke with the interventional pain specialist who has been seeing this patient for last few months. Explained to the she is addicted to narcotics and expect complications near future She is also having muscle spasms and we will restart the Robaxin. According to patient's and 's wishes, We will discontinue the oxycodone and will start her on Dilaudid 2 mg every 4 hour and also the Robaxin 500 mg twice daily Pertinent ROS: General-continue to complaining of pain and spasm and was crying Respiratory-no shortness of breath no chest pain no cough Cardiac-no chest pain no palpitation no syncope Abdomen-no constipation loose stools Musculoskeletal-complaining of back pain and muscle spasm Neuro-her strength improved she is feel better - Constitutional Vitals: Vital Signs Temp Pulse Resp BP Pulse Ox 97.9 F 85 20 177/75 98 10/29/19 12:01 10/28/19 17:00 10/29/19 12:01 10/29/19 12:01 10/29/19 12:01 Period Temp Pulse Resp BP Sys/Connolly Pulse Ox Last 24 Hr 97.2 F-98.4 F 78-85 16-20 151-191/51-105 92-98 Intake and Output 10/28/19 10/29/19 10/29/19 21:59 05:59 13:59 Intake Total 1100 1134 100 Output Total 775 500 675 Balance 325 634 -575 Weight 204 lb 12.951 oz Intake & Output: Intake & Output 10/28/19 10/29/19 10/29/19 21:59 05:59 13:59 Intake Total 1100 1134 100 Output Total 775 500 675 Balance 325 634 -575 Weight 204 lb 12.951 oz Intake: IV 1100 1094 100 Sodium Chloride 0.9% 1,000 ml @ 1000 994 75 mls/hr IV .[id number] [facility] Rx#: [id number] Oral 40 Output: Urine Catheter Amount 250 Void Amount 550 350 425 Urine/Stool Mix 225 150 Other: Urine Appearance Clear Clear Clear Urine Color Bright Yellow Pale Bright Yellow Urine Odor Normal Stool Size Small Moderate Stool Color Brown Brown Yellow Stool Consistency Soft Liquid Liquid # Bowel Movements 1 - Head Head exam: Present: atraumatic, normal inspection, normocephalic - Eye Eye exam: Present: normal appearance. Absent: nystagmus, periorbital swelling, periorbital tenderness - ENT ENT exam: Present: normal exam, normal external ear exam, normal oropharynx - Neck Neck exam: Present: normal inspection. Absent: lymphadenopathy, meningismus - Respiratory Respiratory exam: Present: decreased breath sounds. Absent: accessory muscle use, chest wall tenderness - Cardiovascular Cardiovascular exam: Present: normal rate and rhythm. Absent: diastolic murmur, JVD, +S3, +S4 - GI/Abdominal GI/Abdominal exam: Present: normal bowel sounds, soft, distended. Absent: bruit - Neurological Exam Additional comments: Her motor strength improved 4 x 5 left upper extremity, 4 x 5 left lower extremity, reflexes intact Facial droop improved - Skin Skin exam: Present: normal color. Absent: cyanosis, erythema Medical - PN: Obj Da - Labs CBC & Chem 7: 10/29/19 05:15 10/29/19 05:15 Labs: Abnormal Lab Results 10/29/19 10/29/19 10/28/19 05:15 05:15 05:00 WBC RBC 2.59 L Hgb 7.6 L Hct 24.6 L POC Hct MCHC 30.9 L RDW Plt Count 125 L MPV 10.8 H Lymph # (Auto) 1.02 L POC Sodium Sodium 148 H Chloride 110 H Creatinine 1.7 H 1.4 H POC Creatinine Glucose POC Glucose AST 56 H 53 H Alkaline Phosphatase Ammonia Total Protein 5.6 L Albumin 3.1 L 3.1 L HDL Cholesterol 32 L Urine Protein Ur Leukocyte Esterase Urine RBC Urine WBC Hyaline Casts Urine Yeast (Budding) Urine Opiates Screen 10/28/19 10/27/19 10/27/19 05:00 20:48 18:59 WBC 3.6 L RBC 2.43 L Hgb 7.1 L Hct 23.7 L POC Hct MCHC 30.0 L RDW Plt Count 102 L MPV 10.9 H Lymph # (Auto) 1.29 L POC Sodium Sodium Chloride Creatinine POC Creatinine Glucose POC Glucose AST Alkaline Phosphatase Ammonia 76 H Total Protein Albumin HDL Cholesterol Urine Protein Ur Leukocyte Esterase Urine RBC Urine WBC Hyaline Casts Urine Yeast (Budding) Urine Opiates Screen Suspect positive A 10/27/19 10/27/19 10/27/19 18:59 16:46 16:46 WBC 3.8 L RBC 2.60 L Hgb 7.9 L Hct 25.4 L POC Hct 23.0 L MCHC RDW 14.6 H Plt Count 123 L MPV 10.8 H Lymph # (Auto) 1.00 L POC Sodium 146 H Sodium Chloride Creatinine 1.6 H POC Creatinine 1.8 H Glucose 168 H POC Glucose 160 H AST 60 H Alkaline Phosphatase 131 H Ammonia Total Protein Albumin HDL Cholesterol Urine Protein 100 A Ur Leukocyte Esterase 25 A Urine RBC 2 H Urine WBC 10 H Hyaline Casts 15 H Urine Yeast (Budding) Few A Urine Opiates Screen Meds: Medications Albuterol Sulfate (Ventolin) 2.5 mg NEB Q2HP PRN PRN Reason: Shortness Of Breath Amlodipine Besylate (Norvasc) 10 mg PO DAILY [facility] Aspirin (Aspirin) 81 mg CHEWED DAILY [facility] Last Admin: 10/29/19 07:06 Dose: 81 mg Documented by: Atorvastatin Calcium (Lipitor) 20 mg PO HS [facility] Carvedilol (Coreg) 25 mg PO BIDCC [facility] Dextrose (Dextrose 50%) 0 ml IV UD PRN PRN Reason: Hypoglycemia Diagnostic Test (Pha) (Accu-Chek) 1 each FS ACHS [facility] Last Admin: 10/29/19 11:03 Dose: 1 each Documented by: Docusate Sodium (Colace) 100 mg PO BID [facility] Last Admin: 10/29/19 07:06 Dose: Not Given Documented by: Famotidine (Pepcid) 20 mg IV Q12 [facility] Last Admin: 10/29/19 07:06 Dose: 20 mg Documented by: Glucose (Insta-Glucose) 15 gm PO PRN PRN PRN Reason: Hypoglycemia Hydralazine HCl (Apresoline) 10 mg IV Q4-6HP PRN PRN Reason: Hypertension Last Admin: 10/28/19 17:09 Dose: 10 mg Documented by: Hydromorphone HCl (Dilaudid) 2 mg PO Q4HP PRN; Protocol PRN Reason: Per Pain Protocol Last Admin: 10/29/19 12:21 Dose: 2 mg Documented by: Sodium Chloride (Sodium Chloride 0.9%) 250 mls @ 20 mls/hr IV .[id number] [facility] Stop: 10/30/19 00:44 Last Admin: 10/29/19 12:24 Dose: Not Given Documented by: Insulin Human Lispro (Humalog) 0 unit SQ ACHS [facility]; Protocol Last Admin: 10/29/19 11:07 Dose: Not Given Documented by: Methocarbamol (Robaxin) 500 mg PO BIDP PRN PRN Reason: Muscle Spasm Last Admin: 10/29/19 12:24 Dose: 500 mg Documented by: Metoclopramide HCl (Reglan) 5 mg IV Q6HP PRN PRN Reason: nausea Last Admin: 10/29/19 12:21 Dose: 5 mg Documented by: Non-Formulary Medication (Fenofibrate Nanocrystallized [Tricor]) 145 mg PO DAILY [facility] Senna (Senokot) 2 tab PO HS [facility] Last Admin: 10/28/19 20:06 Dose: Not Given Documented by: Sertraline HCl (Zoloft) 200 mg PO DAILY [facility] Sodium Chloride (Saline Flush) 10 ml IV Q8 [facility] Last Admin: 10/29/19 12:25 Dose: 10 ml Documented by: Sodium Chloride (Moody Nasal) 2 spray ADILENE Q4HP PRN PRN Reason: Congestion Last Admin: 10/29/19 06:39 Dose: 2 spray Documented by: Medical - PN: A/P - Time Spent With Patient Total time spent is greater than 50% in coordination of care (as documented) at patient's floor/unit and/or counseling patient: - Narrative A/P Narrative: Probable acute stroke Based on CT scan and clinical examination Onset of left upper extremity weakness and right facial droop-more than 24 hours since time of onset Recent history of upper GI bleed active underwent EGD showing probable portal gastropathy and underlying cirrhosis. Not a candidate for TPA due to timeframe a nd recent GI bleed Not a candidate for MRI shas she have tens units and according to the she is not a candidate for MRI per previous recommendations ER physician discussed with neurology and recommended starting aspirin with a more close monitoring of hemoglobin due to the recent GI bleed Also recommended getting a CTA/carotid ultrasound based on the renal function in the morning We will start her on aspirin 81 mg Patient continued having motor deficit , needs to be evaluated for inpatient rehab Echocardiogram unremarkable for evidence of any clot, ejection fraction 55 to 60% no major wall motion abnormalities no significant valvular lesions Telemetry unremarkable CTA of the head and neck was unremarkable for any occlusive disease Continued atorvastatin and will increase the dose gradually Acute renal failure-improved Probably due to recent GI bleed and dehydration Creatinine 1.7 We will stop the IV fluid Narcotic addiction Patient is addicted to narcotics she follows with the pain clinic and they have been planning to cut back on the pain medicine Initially because of the stroke like presentation we could not continue the narcotics Educated patient and and and patient recommended trying to wean her off of the narcotics. But today patient and her want her to be on the home regimen of narcotics. Discussed with the pain specialist whom the [facility] powell has been following he also recommended putting her back on the Dilaudid. Discussed with the and educated about the narcotic addiction and if she continues to be on this dose expecting complications. Patient and understand and they want her to be on the home dose and we restarted home regimen We will discontinue IV Tylenol Accelerated hypertension-improving Probably due to stroke Restarted Coreg and amlodipine Blood loss anemia Patient had a recent acute blood loss anemia Hemoglobin is around 8 and will consider blood transfusion tomorrow as she was started on aspirin and risk of bleeding Morbid obesity and hypercapnia Patient had previous hypercapnic confusion Morbid obesity and sleep apnea DVT prophylaxis-SCDs and avoid any heparin products due to recent GI bleed CODE STATUS-full code according to the Medical - PN: Qual - Stroke Onset of Symptoms Date: 10/26/19 Symptom Onset Unknown: No - VTE Deep Vein Thrombosis/Pulmonary Embolism Present on Admission: No
[2019-10-29] MEDS: CARVEDILOL 12.5 MG TABLET PO SCH (16:30)
[2019-10-29] MEDS ORDERED: MAGNESIUM SULFATE 2 GM/50 ML BAG IV ONE ×2 (19:08→19:57)
[2019-10-29] MEDS: SENNOSIDES 1 TABLET PO SCH (19:47)
[2019-10-29 20:20] LABS: Basophils # (Auto) 0.01 K/mcL (0.00-0.30); Basophils % (Auto) 0.2 % (0.0-2.0); Eosinophils # (Auto) 0.04 K/mcL (0.00-0.70); Eosinophils % (Auto) 0.7 % (0.0-7.0); Granulocytes % (Auto) 71.9 % (38.0-78.0); Hematocrit 28.2 % (34.1-44.9); Hemoglobin 9.3 g/dL (11.2-15.7); Lymphocytes # (Auto) 1.24 K/mcL (1.50-4.80); Lymphocytes % (Auto) 21.5 % (15.5-49.0); Mean Cell Volume 91.3 fL (80.0-100.0); Mean Platelet Volume 10.8 fL (7.4-10.4); Monocytes # (Auto) 0.33 K/mcL (0.10-0.90); Monocytes % (Auto) 5.7 % (1.0-12.0); Platelet Count 128 K/mcL (140-440); RBC 3.09 M/mcL (3.59-5.38); Red Cell Distribution Width 15.4 % (11.5-14.5); WBC 5.8 K/mcL (4.50-11.00)
[2019-10-29 20:41] LABS: ALT/SGPT 20 U/l (0-40); AST/SGOT 60 U/l (0-37); Albumin 3.4 gm/dL (3.2-5.2); Albumin/Globulin Ratio 1.4 (1.0-2.3); Alkaline Phosphatase 99 U/L (39-117); Blood Urea Nitrogen 17 mg/dl (8-23); Calcium 8.7 mg/dl (8.6-10.4); Carbon Dioxide 25 mmol/L (22-30); Chloride 106 mmol/L (96-108); Globulin 2.5 gm/dL (2.2-3.7); Glomerular Filtration Rate 30; Glucose 137 mg/dL (70-105)
[2019-10-29] MEDS ORDERED: ATORVASTATIN 20 MG TABLET PO SCH (21:00)
[2019-10-30] MEDS: 0.9 % SODIUM CHLORIDE 10 ML SYRINGE IV SCH ×4 (00:01→12:24)
[2019-10-30] MEDS: HYDROmorphone 2 MG TABLET PO PRN ×3 (00:01→12:17)
[2019-10-30 06:25] LABS: Basophils # (Auto) 0.03 K/mcL (0.00-0.30); Basophils % (Auto) 0.5 % (0.0-2.0); Eosinophils # (Auto) 0.11 K/mcL (0.00-0.70); Eosinophils % (Auto) 1.9 % (0.0-7.0); Lymphocytes # (Auto) 1.67 K/mcL (1.50-4.80); Lymphocytes % (Auto) 28.2 % (15.5-49.0); Mean Cell Volume 92.1 fL (80.0-100.0); Mean Corpuscular HGB Conc 32.1 g/dL (31.0-36.0); Mean Platelet Volume 10.8 fL (7.4-10.4); Monocytes % (Auto) 8.4 % (1.0-12.0); Platelet Count 123 K/mcL (140-440); RBC 3.04 M/mcL (3.59-5.38); Red Cell Distribution Width 15.9 % (11.5-14.5); WBC 5.9 K/mcL (4.50-11.00)
[2019-10-30 06:42] LABS: ALT/SGPT 22 U/l (0-40); AST/SGOT 66 U/l (0-37); Albumin 3.2 gm/dL (3.2-5.2); Albumin/Globulin Ratio 1.2 (1.0-2.3); Alkaline Phosphatase 101 U/L (39-117); Bilirubin,Total 0.6 mg/dL (0.0-1.0); Blood Urea Nitrogen 17 mg/dl (8-23); Calcium 8.6 mg/dl (8.6-10.4); Carbon Dioxide 26 mmol/L (22-30); Chloride 104 mmol/L (96-108); Globulin 2.6 gm/dL (2.2-3.7); Glomerular Filtration Rate 30; Glucose 100 mg/dL (70-105)
[2019-10-30] MEDS: FAMOTIDINE/PF 20 MG/2 ML VIAL IV SCH (07:07)
[2019-10-30] MEDS: METOCLOPRAMIDE 10 MG/2 ML VIAL IV PRN ×2 (07:07→13:15)
[2019-10-30] MEDS: INSULIN LISPRO 1 UNIT/0.01 ML UNIT SQ SCH ×2 (07:19→11:40)
[2019-10-30] MEDS ORDERED: amLODIPine 10 MG TABLET PO SCH (09:00)
[2019-10-30] MEDS ORDERED: FENOFIBRATE 43 MG CAPSULE PO SCH (09:00)
[2019-10-30] MEDS ORDERED: SERTRALINE 100 MG TABLET PO SCH (09:00)
[2019-10-30] MEDS: SODIUM CHLORIDE NASAL 1 SPRAY BOTTLE NAS PRN (09:54)
[2019-10-30] MEDS: ASPIRIN 81 MG TAB.CHEW CHEWED SCH (09:54)
[2019-10-30] MEDS: CARVEDILOL 12.5 MG TABLET PO SCH (09:54)
[2019-10-30] MEDS: DOCUSATE SODIUM 100 MG CAPSULE PO SCH (09:55)
[2019-10-30] MEDS ORDERED: ONDANSETRON 4 MG/2 ML VIAL IV PRN (10:34)
[2019-10-30] MEDS ORDERED: CARVEDILOL 12.5 MG TABLET PO SCH (12:00)
[2019-10-30] MEDS ORDERED: LOSARTAN 50 MG TABLET PO SCH (12:01)
--- NOTE | 2019-10-30 12:08 | Discharge Summary ---
Medical - DS: Prov Patient information: Note initiated : 10/30/19 at 12:06 pm Service Date, if different from initiated Date: [] Patient: Kathleen Avitia 69 y/o F admitted on 10/28/19 for stroke symptoms. Chief Complaint: [] Date of admission: 10/28/19 00:47 Discharge date: 10/30/19 Primary care physician: Delicia Jones Consults: 10/27/19 Consult to Physician [CONS] Stat Comment: Consulting Provider: Easton Pack Reason For Exam: Physician to Consult Medical - DS: Meds - Discharge Medications Active and Home Medications: Home Medications Atorvastatin [Lipitor] 20 mg PO HS 10/28/15 [History Confirmed 10/27/19 Last Taken 06/23/19 20:00] Fenofibrate Nanocrystallized [Tricor] 145 mg PO DAILY 10/28/15 [History Confirmed 10/27/19 Last Taken 06/23/19 08:00] Furosemide [Lasix] 20 mg PO DAILY 10/28/15 [History Confirmed 10/27/19 Last Taken 03/26/18] Rizatriptan Benzoate [Maxalt] 10 mg PO DAILY 10/28/15 [History Confirmed 10/27/19 Last Taken 03/26/18] Methocarbamol [Robaxin] 750 mg PO Q6HP PRN 10/29/15 [History Confirmed 10/27/19 Last Taken 03/26/18] Niacin (Inositol Niacinate) [Niacin 500 mg Capsule] 500 mg PO HS 10/29/15 [History Confirmed 10/27/19 Last Taken 06/24/19 20:00] Sennosides/Docusate Sodium [Senna-Docusate Sodium Tablet] 2 tab PO DAILY 10/29/15 [History Confirmed 10/27/19 Last Taken 06/23/19 20:00] Ergocalciferol (Vitamin D2) [Vitamin D2] 50,000 unit PO WEEKLY 03/12/17 [History Confirmed 10/27/19 Last Taken 06/21/19 08:00] Triamcinolone Acetonide [Nasacort] 2 spray INTRANASAL DAILY 03/12/17 [History Confirmed 10/27/19 Last Taken 06/24/19 08:00] lorazepam 1 mg tablet 2 mg PO Q8HP PRN tab 08/26/18 [History Confirmed 10/27/19 Last Taken 06/24/19 17:00] prochlorperazine maleate 10 mg tablet 10 mg PO Q4HP PRN tab 08/26/18 [History Confirmed 10/27/19 Last Taken 06/23/19 08:00] sertraline 100 mg tablet 200 mg PO DAILY tab 08/26/18 [History Confirmed 10/27/19 Last Taken 06/23/19 08:00] Cozaar 100 mg PO QDAY 06/25/19 [History Confirmed 10/27/19 Last Taken 06/24/19 08:00] Proventil Hfa 2 puff INH Q6 06/25/19 [History Confirmed 10/27/19 Last Taken 06/24/19 08:00] Gabapentin [Neurontin] 400 mg PO TID #10 tab 06/27/19 [Rx Confirmed 10/27/19 Last Taken Unknown] Carvedilol [Coreg] 25 mg PO BID #60 tab 06/28/19 [Rx Confirmed 10/27/19 Last Taken Unknown] amLODIPine [Norvasc] 10 mg PO DAILY 10/27/19 [History Confirmed 10/27/19 Last Taken Unknown] fentaNYL [Duragesic] 50 mcg TOPICAL Q48 10/27/19 [History Confirmed 10/27/19 Last Taken Unknown] lamoTRIgine [Lamotrigine] 50 mg PO BID 10/27/19 [History Confirmed 10/27/19 Last Taken Unknown] HYDROmorphone [Dilaudid] 4 mg PO Q4HP PRN 10/28/19 [History Confirmed 10/28/19 Last Taken Unknown] Medical - DS: Hosp Hospital Course: 69-year-old female who was recently admitted to the hospital for an probable upper GI bleed and found out having probable portal gastropathy and she was discharged home. Patient has been weak since then and found how more weak and falling towards the left side with a left upper extremity weakness and right facial droop since yesterday. The symptom has been going on for at least 24- hour according to the did not improve and she continues to be leaning towards the left side and was brought to the ER. In the ER she appears to have strokelike symptoms with NIH score of 11. Patient is alert oriented answering questions and on examination she has obvious left motor weakness 3 x 5 and right facial droop she also has left lower extremity weakness but according to the . Patient previously had many spinal surgeries and always had some weakness on left lower extremity. Her creatinine is 1.9 in radiology could not do a CTA. She has a TENS unit and not a candidate for MRI according to the . Discussed with the ER physician and Dr. ho will get opinion from neurology and plan is to admit the patient for further evaluation with a CTA once her creatinine improved unless neurology has any recommendations 10/28 Patient was very anxious and crying as we discussed about withdrawing her narcotics and cutting back on her narcotic dependence and addiction. I discussed with the and he would like to cut back on the narcotics and since she is in the hospital this is the best time to do this. Patient expecting withdrawal symptoms and will try to use oxycodone as needed. Will use IV Tylenol. Ordered a CTA which was unremarkable for occlusive disease Echocardiogram unremarkable 10/29 Patient strength improved she is 5 x 4 left upper extremity, 4 x 5 left lower ex tremity her facial droop improved Physical therapy working with her if she continues to progress probably she will be able to go home with outpatient PT or home health PT Extensive discussion with the family about the narcotic addiction and family wants to put her back on the home dose of narcotics I also spoke with the interventional pain specialist who has been seeing this patient for last few m [facility]. Explained to the she is addicted to narcotics and expect complications near future She is also having muscle spasms and we will restart the Robaxin. According to patient's and 's wishes, We will discontinue the oxycodone and will start her on Dilaudid 2 mg every 4 hour and also the Robaxin 500 mg twice daily 10/30/19 Overnight patient had a few seconds of torsades patient was asymptomatic I strongly recommend the patient to cut back on the Robaxin and hold for now She was restarted on aspirin and she was complaining of stomach upset and nausea vomiting this morning I advised her to hold the aspirin and watch her for any melena. I offered the patient to stay another night to watch for any further bleeding since she had the GI bleed 3 weeks ago. Patient preferred to go home and we will discharge her strongly encourage her to watch for any melena and come back immediately if she noticed any. Her renal function is around 1.6 no significant improvement she did have CKD stage III with a creatinine around 1.4-1.5 This also needs to be followed up with the primary care and nephrology if needed Probable acute stroke Based on CT scan and clinical examination CT showed subacute old infarct on the right internal capsule which correlated with her symptoms Onset of left upper extremity weakness and right facial droop-more than 24 hours since time of onset Recent history of upper GI bleed active underwent EGD showing probable portal gastropathy and underlying cirrhosis. Not a candidate for TPA due to timeframe and recent GI bleed Not a candidate for MRI shas she have tens units and according to the she is not a candidate for MRI per previous recommendations ER physician discussed with neurology and recommended starting aspirin with a more close monitoring of hemoglobin due to the recent GI bleed Also recommended getting a CTA/carotid ultrasound based on the renal function in the morning Patient continued having motor deficit , needs to be evaluated for inpatient rehab Echocardiogram unremarkable for evidence of any clot, ejection fraction 55 to 60% no major wall motion abnormalities no significant valvular lesions Telemetry unremarkable Her renal function improved and be got CTA of the head and neck was unremarkable for any occlusive disease Continued atorvastatin and recommended the patient increase the dose to 40 mg She was started on aspirin but patient did not tolerate due to nausea vomiting and advised the patient to hold another 5 days and then restart She will be started on Protonix 40 mg twice daily Advised her to watch for any evidence of melena or upper GI bleed Strongly encourage patient to follow-up with gastroenterology in couple weeks, plan was to do a capsule endoscopy Acute renal failure on CKD-improved Probably due to recent GI bleed and dehydration Creatinine around 1.6-1.7 We will stop the IV fluid She has good p.o. intake Narcotic addiction Patient is addicted to narcotics she follows with the pain clinic and they have been planning to cut back on the pain medicine Initially because of the stroke like presentation we could not continue the narcotics Educated patient and and and patient recommended trying to wean her off of the narcotics. But today patient and her want her to be on the home regimen of narcotics. Discussed with the pain specialist whom the patient has been following he also recommended putting her back on the Dilaudid. Discussed with the and educated about the narcotic addiction and if she continues to be on this dose expecting complications. Patient and understand and they want her to be on the home dose and we restarted home regimen We will discontinue IV Tylenol She needs to follow-up with the pain clinic Accelerated hypertension-improving Probably due to stroke Restarted Coreg and amlodipine Restarted Cozaar 100 mg Blood loss anemia Patient had a recent acute blood loss anemia Hemoglobin is around 8 and will consider blood transfusion tomorrow as she was started on aspirin and risk of bleeding Her hemoglobin is more than 9 and she received 2 units of blood transfusion Morbid obesity and hypercapnia Patient had previous hypercapnic encephalopathy Morbid obesity and sleep apnea Discharge diagnosis: Acute stroke, narcotic addiction, morbid obesity, acute on chronic renal fa - Time Spent with Patient Total time spent providing and/or coordinating discharge services: Greater than 30 minutes Medical - DS: Exam - Constitutional Vitals: Vital Signs Temp Pulse Pulse Resp BP Pulse Ox 10/30/19 11:38 78 17 10/30/19 11:01 18 186/76 95 10/30/19 10:20 18 160/124 96 10/30/19 09:01 17 182/65 95 10/30/19 08:01 97.0 F 19 166/64 95 10/30/19 08:00 65 20 94 10/30/19 07:01 15 167/70 94 10/30/19 06:24 20 87 L 10/30/19 06:01 20 174/69 92 10/30/19 05:54 92 10/30/19 05:52 156/71 91 10/30/19 05:32 172/66 90 10/30/19 04:01 98.4 F 161/73 95 10/30/19 03:02 93 10/30/19 03:01 169/66 94 10/30/19 02:33 92 10/30/19 02:01 158/70 89 L 10/30/19 01:18 153/67 93 10/30/19 00:14 94 10/30/19 00:12 97.2 F 163/72 95 10/29/19 23:43 92 10/29/19 21:01 161/69 93 10/29/19 20:49 161/107 92 10/29/19 20:00 97.6 F 26 H 152/76 95 10/29/19 19:30 94 10/29/19 19:01 160/69 95 10/29/19 18:36 97.2 F 157/75 96 10/29/19 18:05 18 152/86 97 10/29/19 18:01 18 157/64 10/29/19 17:01 19 152/79 96 10/29/19 16:25 98.0 F 18 169/70 96 10/29/19 16:02 98 F 20 164/69 95 10/29/19 15:01 178/76 98 10/29/19 14:01 166/74 96 10/29/19 14:00 77 19 96 10/29/19 13:01 176/68 92 Intake and Output 10/29/19 10/30/19 10/30/19 21:59 05:59 13:59 Intake Total 1845 290 Output Total 325 250 350 Balance 1520 40 -350 Intake: Nourishment/Supplement quantity 120 (ml) IV 1000 50 Sodium Chloride 0.9% 1,000 ml @ 1000 75 mls/hr IV .[id number] [facility] Rx#: [id number] Oral 180 120 Blood Product 665 Output: Void Amount 325 250 350 Other: Meal ice cream Percent of Meal Consumed 100% Urine Appearance Clear Clear Cloudy Urine Color Dark Yellow Dark Yellow Bright Yellow Urine Odor Strong Foul Strong Stool Size Small Small Small Stool Color Brown Brown Brown Green Green Green Stool Consistency Liquid Loose Loose # Voids 1 1 # Bowel Movements 1 1 Weight 201 lb 4.8 oz - Head Head exam: Present: atraumatic, normal inspection, normocephalic - Eye Eye exam: Present: normal appearance Pupils: Present: PERRL - ENT ENT exam: Present: mucous membranes moist, normal exam, normal external ear exam, normal oropharynx - Neck Neck exam: Present: normal inspection. Absent: lymphadenopathy, meningismus - Respiratory Respiratory exam: Present: decreased breath sounds. Absent: accessory muscle use, chest wall tenderness, stridor, wheezes - Cardiovascular Cardiovascular exam: Absent: bradycardia, clicks, JVD, +S3, +S4 - GI/Abdominal GI/Abdominal exam: Present: normal bowel sounds, soft, distended - Neurological Exam Additional comments: Her motor strength bilaterally equal and almost resolved Left upper extremity and lower extremity 5 x 5 Reflexes intact She was able to walk with the help of a walker without any gait instability or ataxia It seems like her symptoms are almost resolved - Psychiatric Psychiatric exam: Present: normal affect, normal mood. Absent: anxious, depressed - Skin Skin exam: Present: erythema, normal color. Absent: cyanosis Medical - DS: Data Labs on day of discharge: Labs from last 24 hours 10/30/19 10/30/19 10/30/19 07:36 05:00 05:00 WBC 5.9 RBC 3.04 L Hgb 9.0 L Hct 28.0 L MCV 92.1 MCH 29.6 MCHC 32.1 RDW 15.9 H Plt Count 123 L MPV 10.8 H Gran % 61.0 Lymph % (Auto) 28.2 [place] % (Auto) 8.4 Eos % (Auto) 1.9 Baso % (Auto) 0.5 Gran # 3.61 Lymph # (Auto) 1.67 [place] # (Auto) 0.50 Eos # (Auto) 0.11 Baso # (Auto) 0.03 Sodium 142 Potassium 3.5 Chloride 104 Carbon Dioxide 26 Anion Gap 12.0 BUN 17 Creatinine 1.7 H GFR Calculation 30 Glucose 100 Calcium 8.6 Magnesium 2.1 Total Bilirubin 0.6 AST 66 H ALT 22 Alkaline Phosphatase 101 Troponin T < 0.01 Total Protein 5.8 L Albumin 3.2 Globulin 2.6 Albumin/Globulin Ratio 1.2 10/30/19 10/29/19 10/29/19 01:30 19:28 19:28 WBC 5.8 RBC 3.09 L Hgb 9.3 L Hct 28.2 L MCV 91.3 MCH 30.1 MCHC 33.0 RDW 15.4 H Plt Count 128 L MPV 10.8 H Gran % 71.9 Lymph % (Auto) 21.5 [place] % (Auto) 5.7 Eos % (Auto) 0.7 Baso % (Auto) 0.2 Gran # 4.16 Lymph # (Auto) 1.24 L [place] # (Auto) 0.33 Eos # (Auto) 0.04 Baso # (Auto) 0.01 Sodium 143 Potassium 3.6 Chloride 106 Carbon Dioxide 25 Anion Gap 12.0 BUN 17 Creatinine 1.7 H GFR Calculation 30 Glucose 137 H Calcium 8.7 Magnesium Total Bilirubin 1.0 AST 60 H ALT 20 Alkaline Phosphatase 99 Troponin T < 0.01 Total Protein 5.9 Albumin 3.4 Globulin 2.5 Albumin/Globulin Ratio 1.4 10/29/19 19:28 WBC RBC Hgb Hct MCV MCH MCHC RDW Plt Count MPV Gran % Lymph % (Auto) [place] % (Auto) Eos % (Auto) Baso % (Auto) Gran # Lymph # (Auto) [place] # (Auto) Eos # (Auto) Baso # (Auto) Sodium Potassium Chloride Carbon Dioxide Anion Gap BUN Creatinine GFR Calculation Glucose Calcium Magnesium Total Bilirubin AST ALT Alkaline Phosphatase Troponin T < 0.01 Total Protein Albumin Globulin Albumin/Globulin Ratio Medical - DS: A/P - Patient/Caregiver Discharge Instructions Activity: ambulate only with your walker Diet: Renal Additional Instructions: Hold the aspirin for 5 days I would recommend discontinuing fentanyl patch when you are on Dilaudid Discontinue lorazepam Watch for any evidence of dark stool Monitor blood pressure and the goal is to control the blood pressure less than 140 in next 7 days Recheck kidney function in 1 week and follow-up with the primary care provider If your kidney function is getting worse I would recommend establish care with a contact center rep Prescriptions: Aspirin 81 mg CHEWED DAILY #90 tab.chew Transmission Status: Pending to [facility] Atorvastatin [Lipitor] 40 mg PO HS #60 tab Transmission Status: Pending to [facility] Methocarbamol [Robaxin] 750 mg PO BID PRN #30 tab PRN Reason: Muscle Spasm Transmission Status: Pending to [facility] - Follow up Plan Follow up with: Delicia Jones MD [Primary Care Provider] - Disposition: Home Health Service Health Concerns: Narcotics addiction Prognosis: Fair Rehab Potential: Fair I certify that the patient requires SNF services: No Overall status at discharge: patient is progressing back to baseline Medical - DS: Qual - VTE Deep Vein Thrombosis/Pulmonary Embolism Present on Admission: No
[2019-10-30] MEDS ORDERED: HEPARIN SODIUM,PORCINE/PF 500 UNIT/5 ML SYRINGE IV ONE (15:09)
[2019-10-31] MEDS ORDERED: LOSARTAN 50 MG TABLET PO SCH (09:00)
[2019-11-01 13:31] LABS: Opiate Confirmation POSITIVE (N)
== END 2019-10-30 15:30 | disposition home health service (06) | DRG 65 ==
LOC: ED 16:23 → ICU 10-28 00:47
PROVIDERS: ADMIT Internal Medicine; ATTEND Internal Medicine